=== PATIENT | female | born 1965 ===

== ENCOUNTER → 2018-01-19 | Outpatient (CLI) | payer OTHER ==
[~2018-01-19] MED LIST: HYDR-3583 PO; HYDR1TAB PO
--- NOTE | 2018-01-19 08:35 | Diagnostic Imaging Report ---
Indication: Routine screening. Comparison is made with prior mammogram from 08/22/2015 and 05/07/2014. 2-D and 3-D bilateral screening mammography was performed with CAD. Scattered fibroglandular densities are identified bilaterally. Intraparenchymal lymph node in the outer right breast appears stable. No new mass or malignant-appearing microcalcifications are seen. The axillae are unremarkable. Impression: BI-RADS category 2 No mammographic features suspicious for malignancy are identified. ACR BI-RADS Category 2: Benign findings. Result letter will be mailed to the patient. Note: At least 10% of breast cancer is not imaged by mammography. Dictated by: Dictated on workstation # [id number]
== END ==
LOC: RAD 07:37
PROVIDERS: ATTEND Family Medicine
DX: Z12.31 Encounter for screening mammogram for malignant neoplasm of breast (principal)
CPT/HCPCS: 77067

== ENCOUNTER 2018-03-02 12:15 | Emergency (ER) | payer OTHER ==
[~2018-03-02] VITALS: Ht 149.9 cm; Wt 85.7 kg
[2018-03-02] MEDS ORDERED: METF500T8 (12:39)
[2018-03-02 12:47] LABS: BASOPHILS % (AUTO) 0 % (0-10); EOSINOPHILS % (AUTO) 0 % (0-10); HEMATOCRIT 36 % (35-52); HEMOGLOBIN 11.3 G/DL (11.5-16.0); LYMPHOCYTES % (AUTO) 18 % (12-44); MEAN CORPUSCULAR HEMOGLOBIN 22 PG (25-34); MEAN CORPUSCULAR HGB CONC 32 G/DL (32-36); MEAN CORPUSCULAR VOLUME 70 FL (80-99); MEAN PLATELET VOLUME 10.6 FL (7.4-10.4); MONOCYTES # (AUTO) 0.3 X 10^3 (0.0-1.0); MONOCYTES % (AUTO) 5 % (0-12); NEUTROPHILS # (AUTO) 4.4 X 10^3 (1.8-7.8); NEUTROPHILS % (AUTO) 78 % (42-75); PLATELET COUNT 280 10^3/uL (130-400); RED BLOOD COUNT 5.04 10^6/uL (4.35-5.85); RED CELL DISTRIBUTION WIDTH 18.7 % (10.0-14.5); WHITE BLOOD COUNT 5.7 10^3/uL (4.3-11.0)
[2018-03-02 13:08] LABS: ALANINE AMINOTRANSFERASE 27 U/L (0-55); ALBUMIN 4.1 GM/DL (3.2-4.5); ALKALINE PHOSPHATASE 166 U/L (40-136); BILIRUBIN,TOTAL 0.5 MG/DL (0.1-1.0); BUN/CREATININE RATIO 18; CALCIUM 8.8 MG/DL (8.5-10.1); CARBON DIOXIDE 23 MMOL/L (21-32); CHLORIDE 103 MMOL/L (98-107); CREATININE SERUM 0.68 MG/DL (0.60-1.30); GFR ESTIMATED > 60; GLUCOSE 163 MG/DL (70-105); POTASSIUM 3.3 MMOL/L (3.6-5.0); SODIUM 135 MMOL/L (135-145); TOTAL PROTEIN 7.8 GM/DL (6.4-8.2)
[2018-03-02 13:14] LABS: BILIRUBIN,URINE NEGATIVE (NEGATIVE); CLARITY,URINE CLEAR; COLOR,URINE YELLOW; GLUCOSE, URINE (UA) NEGATIVE (NEGATIVE); KETONES,URINE 3+ (NEGATIVE); LEUKOCYTE ESTERASE ,URINE NEGATIVE (NEGATIVE); NITRITE,URINE NEGATIVE (NEGATIVE); PH,URINE 5 (5-9); PROTEIN,URINE 2+ (NEGATIVE); UROBILINOGEN,URINE 1 MG/DL (NORMAL)
[2018-03-02 13:25] LABS: BACTERIA,URINE NEGATIVE /HPF
--- NOTE | 2018-03-02 13:27 | ED Abdominal Pain ---
General Chief Complaint: Abdominal/GI Problems Stated Complaint: ABD PAIN Nursing Triage Note: Pt accompanied by daughter to triage rm. Pt reports severa abdominal pain with some nausea that began this am. Pt reports pain radiates to the back. Pt denies bowel or bladder issues. Sepsis Screen: No Definite Risk Source of Information: Patient, Family Exam Limitations: No Limitations, Language Barrier History of Present Illness Date Seen by Provider: Mar 02, 2018 Time Seen by Provider: 13:22 Initial Comments The patient is a 52-year-old female. Her [place] is limited. However her daughter speaks excellent [place] and serves as the sports broadcaster. They report that she acutely began having upper abdominal pain this morning mostly centered in the epigastrium and radiating to the back. She has had nausea but no vomiting. She has a past history of laparoscopic cholecystectomy several years ago. There has been no evidence of hematemesis hematochezia or melena. She had a normal bowel movement this morning. There has been no gallbladder pain since removal. Timing/Duration: 4-6 Hours Severity/Quality: Mild, Moderate Location: Epigastric Radiation: Back Allergies and Home Medications Allergies Coded Allergies: No Known Drug Allergies (Unverified , 02/17/11) Patient Home Medication List Home Medication List Reviewed: Yes Review of Systems Review of Systems Constitutional: see HPI EENTM: No Symptoms Reported Respiratory: No Symptoms Reported Cardiovascular: No Symptoms Reported Gastrointestinal: See HPI Genitourinary: No Symptoms Reported Musculoskeletal: no symptoms reported Skin: no symptoms reported Psychiatric/Neurological: No Symptoms Reported Endocrine: No Symptoms Reported Hematologic/Lymphatic: No Symptoms Reported Past Fsflxwd-Zeanby-Lrtnse Hx Patient Social History Alcohol Use: Denies Use Recreational Drug Use: No Smoking Status: Never a Smoker 2nd Hand Smoke Exposure: Yes Recent Foreign Travel: No Contact w/Someone Who Travel: No Recent Infectious Disease Expo: No Recent Hopitalizations: No Past Medical History Surgeries: Yes (r/l tk, neck) Section, Gallbladder Respiratory: No Cardiac: No Neurological: No Gastrointestinal: No Musculoskeletal: Yes Endocrine: Yes Diabetes, Non-Insulin dep HEENT: No Cancer: No Psychosocial: No Blood Disorders: No Physical Exam Vital Signs Vital Signs - First Documented 03/02/18 12:20 Temp 97.8 Pulse 84 Resp 22 B/P (MAP) 131/90 (104) Pulse Ox 93 O2 Delivery Room Air Capillary Refill : Less Than 3 Seconds Height/Weight/BMI Height: 4'11.00" Weight: 189lbs. oz. 85.520586dj; BMI Method:Stated General Appearance: mild distress HEENT: normal ENT inspection Neck: full range of motion Respiratory: chest non-tender, lungs clear, normal breath sounds, no respiratory distress, no accessory muscle use Cardiovascular: systolic murmur (grade 1-2 heard best along the left sternal border and at right and left second intercostal space.) Gastrointestinal: abnormal bowel sounds Extremities: normal range of motion, non-tender, normal inspection, no pedal edema Back: normal inspection Neurologic/Psychiatric: toy consultant II-XII nml as tested, no motor/sensory deficits, alert, normal mood/affect, oriented x 3 Skin: normal color Lymphatic: no adenopathy Progress/Results/Core Measures Results/Orders Lab Results Laboratory Tests Test 03/02/18 12:35 03/02/18 13:02 Range/Units White Blood Count 5.7 4.3-11.0 10^3/uL Red Blood Count 5.04 4.35-5.85 10^6/uL Hemoglobin 11.3 L 11.5-16.0 G/DL Hematocrit 36 35-52 % Mean Corpuscular Volume 70 L 80-99 FL Mean Corpuscular Hemoglobin 22 L 25-34 PG Mean Corpuscular Hemoglobin Concent 32 32-36 G/DL Red Cell Distribution Width 18.7 H 10.0-14.5 % Platelet Count 280 130-400 10^3/uL Mean Platelet Volume 10.6 H 7.4-10.4 FL Neutrophils (%) (Auto) 78 H 42-75 % Lymphocytes (%) (Auto) 18 12-44 % Monocytes (%) (Auto) 5 0-12 % Eosinophils (%) (Auto) 0 0-10 % Basophils (%) (Auto) 0 0-10 % Neutrophils # (Auto) 4.4 1.8-7.8 X 10^3 Lymphocytes # (Auto) 1.0 1.0-4.0 X 10^3 Monocytes # (Auto) 0.3 0.0-1.0 X 10^3 Eosinophils # (Auto) 0.0 0.0-0.3 10^3/uL Basophils # (Auto) 0.0 0.0-0.1 10^3/uL Sodium Level 135 135-145 MMOL/L Potassium Level 3.3 L 3.6-5.0 MMOL/L Chloride Level 103 98-107 MMOL/L Carbon Dioxide Level 23 21-32 MMOL/L Anion Gap 9 5-14 MMOL/L Blood Urea Nitrogen 12 7-18 MG/DL Creatinine 0.68 0.60-1.30 MG/DL Estimat Glomerular Filtration Rate > 60 BUN/Creatinine Ratio 18 Glucose Level 163 H 70-105 MG/DL Calcium Level 8.8 8.5-10.1 MG/DL Corrected Calcium 8.7 8.5-10.1 MG/DL Total Bilirubin 0.5 0.1-1.0 MG/DL Aspartate Amino Transf (AST/SGOT) 55 H 5-34 U/L Alanine Aminotransferase (ALT/SGPT) 27 0-55 U/L Alkaline Phosphatase 166 H 40-136 U/L Total Protein 7.8 6.4-8.2 GM/DL Albumin 4.1 3.2-4.5 GM/DL Lipase 55 8-78 U/L Urine Color YELLOW Urine Clarity CLEAR Urine pH 5 5-[address] 1.020 1.016-1.022 Urine Protein 2+ H NEGATIVE Urine Glucose (UA) NEGATIVE NEGATIVE Urine Ketones 3+ H NEGATIVE Urine Nitrite NEGATIVE NEGATIVE Urine Bilirubin NEGATIVE NEGATIVE Urine Urobilinogen 1 NORMAL MG/DL Urine Leukocyte Esterase NEGATIVE NEGATIVE Urine RBC (Auto) NEGATIVE NEGATIVE Urine RBC NONE /HPF Urine WBC NONE /HPF Urine Squamous Epithelial Cells 2-5 /HPF Urine Crystals NONE /LPF Urine Bacteria NEGATIVE /HPF Urine Casts NONE /LPF Urine Mucus SMALL H /LPF Urine Culture Indicated NO My Orders Orders - MAURO MCGRATH MD Cbc With Automated Diff (03/02/18 12:25) Comprehensive Metabolic Panel (03/02/18 12:25) Ua Culture If Indicated (03/02/18 12:25) Lipase (03/02/18 12:47) Fentanyl Injection (Sublimaze Injection (03/02/18 13:30) Ct Abdomen/Pelvis W (03/02/18 13:31) Iohexol Injection (Omnipaque 350 Mg/Ml 1 (03/02/18 14:15) Contrast Received (Contrast Received) (03/02/18 14:15) Ns (Ivpb) (Sodium Chloride 0.9% Ivpb Bag (03/02/18 14:15) Medications Given in ED Current Medications Medications Dose Ordered Sig/Cici Route Start Time Stop Time Status Last Admin Dose Admin Fentanyl Citrate 50 mcg ONCE ONCE IVP 03/02/18 13:30 03/02/18 13:31 DC 03/02/18 13:35 50 MCG Iohexol 100 ml ONCE ONCE IV 03/02/18 14:15 03/02/18 14:16 DC 03/02/18 14:13 100 ML Sodium Chloride 100 ml ONCE ONCE IV 03/02/18 14:15 03/02/18 14:16 DC 03/02/18 14:13 80 ML Vital Signs/I&O 03/02/18 03/02/18 12:20 13:43 Temp 97.8 98.2 Pulse 84 87 Resp 22 16 B/P (MAP) 131/90 (104) 127/70 (89) Pulse Ox 93 98 O2 Delivery Room Air Blood Pressure Mean: 104 Departure Communication (Admissions) CT scan showed no evidence of acute pathology. These findings were relayed to the patient's daughter and through her to the patient. Impression Primary Impression: abdominal pain Disposition: 01 HOME, SELF-CARE Condition: Stable/Unchanged Departure-Patient Inst. Decision time for Depature: 15:04 Referrals: [facility] (PCP/Family) Primary Care Physician Patient Instructions: Acute Abdomen (Belly Pain), Adult (DC) Add. Discharge Instructions: All discharge instructions reviewed with patient and/or family. Voiced understanding. Take small feedings and bland food for the next 24 hours. Get Prilosec OTC at the pharmacy and take 1 today and daily. If further problems see your provider MAURO MCGRATH MD Mar 02, 2018 13:27
[2018-03-02] MEDS ORDERED: fentaNYL INJECTION 100 MCG/2 ML AMP IVP ONE (13:30)
[2018-03-02 13:43] VITALS: BP 127/70
[2018-03-02] MEDS ORDERED: NS 100 ML (IVPB) BAG IV ONE (14:15)
[2018-03-02] MEDS ORDERED: IOHEXOL 350 MG/ML 100 ML (OMNIPAQUE 350) VIAL IV ONE (14:15)
[2018-03-02] MEDS ORDERED: RECEIVED CONTRAST (Hold Metformin) IV SCH (14:15)
--- NOTE | 2018-03-02 14:34 | Diagnostic Imaging Report ---
PROCEDURE: CT abdomen and pelvis with contrast. TECHNIQUE: Multiple contiguous axial images were obtained through the abdomen and pelvis after administration of intravenous contrast. INDICATION: Epigastric pain. FINDINGS: Lung bases are clear. Liver appears normal. Gallbladder is surgically absent. Pancreas is normal. Spleen is not enlarged. Kidneys and adrenals appear normal. Uterus is mildly enlarged and deviated towards the right. Adnexa are unremarkable. Urinary bladder appears normal. There is diverticulosis of the colon with moderate fecal retention. There is no evidence of diverticulitis. Small bowel is unremarkable. Aorta and IVC are unremarkable. There is no intraperitoneal free air or free fluid. IMPRESSION: No acute abnormality is seen in the abdomen or pelvis. Dictated by: Dictated on workstation # [id number]
[2018-03-02 15:15] VITALS: BP 118/61
== END 2018-03-02 15:15 | disposition home or self-care (01) ==
LOC: EDUNIT# 12:15 → ER 12:16
DX: R10.33 Periumbilical pain (principal); E11.9 Type 2 diabetes mellitus without complications; Z98.84 Bariatric surgery status; Z77.22 Contact with and (suspected) exposure to environmental tobacco smoke (acute) (chronic); Z98.890 Other specified postprocedural states
CPT/HCPCS: 36415; 74177; 80053; 81000; 83690; 85025

== ENCOUNTER → 2018-08-02 | Outpatient (CLI) | payer OTHER ==
[~2018-08-02] MED LIST changes: +METF500T8
--- NOTE | 2018-08-02 17:22 | Diagnostic Imaging Report ---
EXAMINATION: Magnetic resonance imaging of the left knee without intravenous contrast DATE: August 02, 2018. COMPARISON: None. INDICATION: 53-year-old female, left knee pain and swelling. TECHNIQUE: Multiplanar, multisequence non contrast enhanced MR imaging was accomplished. FINDINGS: There are motion limitations of the exam despite multiple repeat sequences. MENISCI: There is an extensive complex tear involving the entire medial meniscus. There is volume loss involving the anterior horn junction and body of the medial meniscus. There is 3-4 mm medial meniscal extrusion. The lateral meniscus is grossly intact. LIGAMENTS AND TENDONS: The anterior and posterior cruciate ligaments are intact. There is mass effect on the superficial component of the medial collateral ligament complex relating to the extruded medial meniscus and medial compartment osteophytes. There is no tear of the medial collateral ligament complex. The iliotibial band, mid third lateral capsular ligament, fibular collateral ligament, biceps femoris tendon and conjoined tendon are intact. The quadriceps tendon and patella ligament are intact. JOINT: There is minimal superficial irregularity of the patellofemoral compartment cartilage. There are broad areas of full-thickness medial compartment cartilage loss. The lateral compartment cartilage is grossly intact. There is a trace knee joint effusion without identified intra-articular body or prominent synovitis. BONE: There is degenerative related marrow edema in the medial femoral condyle and medial tibial plateau. There is no acute fracture, bone contusion or evidence of osteonecrosis. BURSAE AND SOFT TISSUES: There is a small Ferrell's cyst with body in the Ferrell's cyst measuring 10 x 9 x 14 mm in size. There is edema-like signal near the myotendinous junction of the lateral head of gastrocnemius likely relating to a low-grade myotendinous strain injury. There is mild nonspecific prepatellar subcutaneous edema. IMPRESSION: 1. Extensive complex tear involving the entire medial meniscus with volume loss involving the anterior horn/body junction and body of the medial meniscus. 3-4 mm medial meniscal extrusion. 2. Grossly intact lateral meniscus. 3. Intact anterior and posterior cruciate ligaments. Additional ligaments and tendons are intact. 4. Severe medial and minimal patellofemoral compartment osteoarthritis. Trace knee joint effusion. 5. Small Ferrell's cyst with body in the Ferrell's cyst measuring 10 x 9 x 14 mm in size. 6. No acute fracture, bone contusion or evidence of osteonecrosis. 7. Low-grade myotendinous sprain injury of the lateral head of gastrocnemius. Dictated on workstation # [id number]
--- NOTE | 2018-08-02 17:24 | Diagnostic Imaging Report ---
EXAMINATION: Magnetic resonance imaging of the right knee without intravenous contrast DATE: August 02, 2018. COMPARISON: None. INDICATION: 53-year-old female, right knee pain and swelling. TECHNIQUE: Multiplanar, multisequence non contrast enhanced MR imaging was accomplished. FINDINGS: MENISCI: There is an oblique tear involving the anterior horn, body and posterior horn of the medial meniscus. There is a 4 mm medial meniscal extrusion. There is mild volume loss of the body of the medial meniscus. There is signal in the anterior horn of the lateral meniscus which is best classified as low to intermediate probability for meniscal tear. The body and posterior horn of the lateral meniscus appear intact. LIGAMENTS AND TENDONS: The anterior and posterior cruciate ligaments are intact. There is mass effect on the superficial component of the medial collateral ligament relating to the medial meniscal extrusion and medial compartment osteophytes. There is no identified tear of the medial collateral ligament complex. The iliotibial band, mid third lateral capsular ligament, fibular collateral ligament, biceps femoris tendon and conjoined tendon are intact. The quadriceps tendon and patella ligament are intact. JOINT: There is approximately 25-50% generalized medial compartment cartilage loss. There is mild irregularity of the surface of the lateral compartment cartilage. The patellofemoral compartment cartilage is grossly intact. There is no knee joint effusion, prominent synovitis or identified intra-articular body. BONE: There is low level degenerative related marrow edema adjacent to the medial compartment and in the lateral tibial plateau. There is no acute fracture, bone contusion or evidence of osteonecrosis. BURSAE AND SOFT TISSUES: There is a small slitlike Ferrell's cyst. Additional soft tissue evaluation is unremarkable. IMPRESSION: 1. Oblique tear involving the anterior horn, body and posterior horn of the medial meniscus with 4 mm medial meniscal extrusion. Mild volume loss of the body of the medial meniscus. 2. Signal in the anterior horn of the lateral meniscus which is best classified as a low to intermediate probability for meniscal tear. The additional components of the lateral meniscus are intact. 3. Intact anterior and posterior cruciate ligaments. Additional ligaments and tendons are intact. 4. Eiij-ep-oloaasrq medial and mild lateral compartment osteoarthritis. No knee joint effusion, prominent synovitis or identified intra-articular body. 5. Small slitlike Ferrell's cyst. 6. No acute fracture, bone contusion or evidence of osteonecrosis. Dictated on workstation # [id number]
== END ==
LOC: RAD 12:16
PROVIDERS: ATTEND Orthopaedic Surgery
DX: S83.241A Other tear of medial meniscus, current injury, right knee, initial encounter (principal); S83.8X2A Sprain of other specified parts of left knee, initial encounter; S83.232A Complex tear of medial meniscus, current injury, left knee, initial encounter; M71.22 Synovial cyst of popliteal space [Baker], left knee; M17.11 Unilateral primary osteoarthritis, right knee; M71.21 Synovial cyst of popliteal space [Baker], right knee
CPT/HCPCS: 73721

== ENCOUNTER → 2019-01-21 | Outpatient (CLI) | payer OTHER ==
--- NOTE | 2019-01-21 10:53 | Diagnostic Imaging Report ---
INDICATION: Screening The current study was also evaluated with a Computer Aided Detection (CAD) system. 3-D Tomographic imaging was also performed. INDICATION: Screening. The current study was also evaluated with a Computer Aided Detection (CAD) system. 3-D Tomographic imaging was also performed. FINDINGS: There are scattered fibroglandular densities bilaterally. There are a few benign type calcifications. There is no dominant mass, spiculated lesion or suspicious calcification identified. Skin nipples and axillae are unremarkable. IMPRESSION: Category 2 benign. ACR BI-RADS Category 2: Benign findings. Result letter will be mailed to the patient. Note: At least 10% of breast cancer is not imaged by mammography. Dictated by: Dictated on workstation # [id number]
== END ==
LOC: RAD 08:59
PROVIDERS: ATTEND Nurse Practitioner Community Health
DX: Z12.31 Encounter for screening mammogram for malignant neoplasm of breast (principal)
CPT/HCPCS: 77067

== ENCOUNTER 2022-06-15 13:00 | Outpatient (CLI) | payer BC ==
[~2022-06-15] VITALS: Ht 142.2 cm; Wt 93.6 kg
[~2022-06-15 13:00] MED LIST changes: -ATOR10TA66 PO; -METF-478 PO
[2022-06-15 13:25] LABS: BILIRUBIN,URINE NEGATIVE (NEGATIVE); CLARITY,URINE CLEAR; COLOR,URINE YELLOW; GLUCOSE, URINE (UA) NEGATIVE (NEGATIVE); KETONES,URINE TRACE (NEGATIVE); LEUKOCYTE ESTERASE ,URINE NEGATIVE (NEGATIVE); NITRITE,URINE NEGATIVE (NEGATIVE); PH,URINE 6.5 (5-9); PROTEIN,URINE TRACE (NEGATIVE)
[2022-06-15] MEDS ORDERED: ATOR10TA66 PO (13:25)
[2022-06-15] MEDS ORDERED: METF-478 PO (13:25)
[2022-06-15 13:33] LABS: BACTERIA,URINE TRACE /HPF; RBC,URINE 0-2 /HPF; WBC,URINE 0-2 /HPF
[2022-06-15 13:57] VITALS: BP 136/74
[2022-06-15 14:54] LABS: BASOPHILS % (AUTO) 1 % (0-10); EOSINOPHILS # (AUTO) 0.1 10^3/uL (0.0-0.3); EOSINOPHILS % (AUTO) 2 % (0-10); HEMATOCRIT 41 % (35-52); HEMOGLOBIN 13.3 g/dL (11.5-16.0); LYMPHOCYTES # (AUTO) 1.6 10^3/uL (1.0-4.0); LYMPHOCYTES % (AUTO) 27 % (12-44); MEAN CORPUSCULAR HEMOGLOBIN 28 pg (25-34); MEAN CORPUSCULAR HGB CONC 33 g/dL (32-36); MEAN CORPUSCULAR VOLUME 85 fL (80-99); MEAN PLATELET VOLUME 10.6 fL (9.0-12.2); MONOCYTES # (AUTO) 0.4 10^3/uL (0.0-1.0); MONOCYTES % (AUTO) 7 % (0-12); NEUTROPHILS # (AUTO) 3.8 10^3/uL (1.8-7.8); NEUTROPHILS % (AUTO) 64 % (42-75); PLATELET COUNT 304 10^3/uL (130-400)
[2022-06-15 15:03] LABS: PROTHROMBIN TIME PATIENT 13.6 SEC (12.2-14.7)
[2022-06-15 15:11] LABS: BILIRUBIN,TOTAL 0.3 MG/DL (0.1-1.0); CALCIUM 9.7 MG/DL (8.5-10.1); CREATININE SERUM 0.57 MG/DL (0.60-1.30); POTASSIUM 3.3 MMOL/L (3.6-5.0); TOTAL PROTEIN 7.4 GM/DL (6.4-8.2)
[2022-06-15 15:13] LABS: ERYTHROCYTE SEDIMENTATION RATE 23 MM/HR (0-30)
--- NOTE | 2022-06-15 15:41 | Physical Therapy Pre-Op Eval ---
PT Pre-Surgical Assessment Type of Surgery Type of Surgery: Prior Level of Function Current Living Status: Other Family Locomotion (Upon Admit): Independent PLOF DME: None Subjective Home: Multilevel Current Living Status: Other Family Entry Into Home: Stairs Without Railing Steps Into Home: 5 Steps Inside Home: 14 Steps Accessories: No Railing Treatment Rendered Treatment: Patient instructed in assistive device, supported ambulation. Patient instructed in and given written program of ROM and strengthening exercises to be preformed post-op. Patient instructed in movement precautions where applicable. Patient demonstrates understandings of post-operative therapy protocol including gait pattern and exercise program. Pre-operative instruction completed; await physical therapy orders after surgery. Patient only speaks [place]. Nurse was with patient and the mental health consultant services. HEP and patient information received from daughter who speaks [place]. Treatment Goal Met: Yes Charges/GCodes Time In: 1331 Time Out: 1338 Total Billed Treatment Time: 7 Total Billed Treatment Visit, Education (no Charge) ROSAMARIA CADET PT Jun 15, 2022 15:41
--- NOTE | 2022-06-15 16:18 | Diagnostic Imaging Report ---
INDICATION: Preoperative evaluation prior to knee surgery. EXAMINATION: Two view chest, 06/15/2022. FINDINGS: The cardiomediastinal silhouette is unremarkable. The pulmonary vasculature is within normal limits. The lungs and pleural spaces are clear. IMPRESSION: No evidence of an acute cardiopulmonary process. Dictated by: Dictated on workstation # [id number]
== END 2022-06-15 17:06 ==
LOC: PREOP 13:00
PROVIDERS: ATTEND Orthopaedic Surgery
DX: Z01.812 Encounter for preprocedural laboratory examination (principal); Z01.810 Encounter for preprocedural cardiovascular examination
CPT/HCPCS: 36415; 71046; 80053; 81000; 82308; 85025; 85610; 85652; 86850; 86900; 86901; 87081; 93005

== ENCOUNTER → 2022-06-15 | Outpatient (CLI) | payer BC ==
[~2022-06-15] MED LIST changes: +ATOR10TA66 PO; +METF-478 PO; +METF-865; -METF500T8
== END ==
LOC: RAD 14:49
PROVIDERS: ATTEND Orthopaedic Surgery
DX: Z01.818 Encounter for other preprocedural examination (principal); M17.11 Unilateral primary osteoarthritis, right knee

== ENCOUNTER 2022-06-22 07:53 | Inpatient (IN) | payer BC, OTHER ==
--- NOTE | 2022-06-15 08:24 | HISTORY AND PHYSICAL ---
ADMISSION HISTORY AND PHYSICAL This will be for inpatient admission on 06/22/2022 for left total knee arthroplasty. The patient will require regular inpatient admission due to comorbidities, need for physical therapy and pain management. HISTORY OF PRESENT ILLNESS: The patient is a 57-year-old female with longstanding bilateral knee pain, left worse than right. She has been treated with arthroscopy as well as injections without relief. Radiographs reveal complete loss of medial and patellofemoral joint spaces. Due to functional impairment and failure to improve with conservative measures, the patient elected to proceed with surgical intervention. REVIEW OF SYSTEMS: No chest pain, no shortness of breath. No dysuria. PAST MEDICAL HISTORY: Diabetes. PAST SURGERIES: Bilateral knee arthroscopy, cholecystectomy, and cervical spine. FAMILY HISTORY: Unknown. PRIMARY CARE PROVIDER: [facility]. MEDICATIONS: Metformin and meloxicam. ALLERGIES: NO KNOWN DRUG ALLERGIES. SOCIAL HISTORY: The patient denies tobacco use. She drinks alcohol occasionally. PHYSICAL EXAMINATION: GENERAL: The patient is well-developed, well-nourished, in no acute distress. HEENT: Normocephalic, atraumatic. Pupils are equal, round and reactive to light. Oropharynx is clear. NECK: Supple. No lymphadenopathy. LUNGS: Clear to auscultation bilaterally. HEART: Regular rate and rhythm. ABDOMEN: Soft, nontender, nondistended. EXTREMITIES: Her left knee demonstrates moderate effusion. She has pain with patellar loading with crepitus noted. She is tender along her medial femoral condyle and has pain medially with Nadia's. Her range of motion is 0/2/120. The patient ambulates with an antalgic gait. IMPRESSION: Left knee osteoarthritis, unresponsive to conservative measures. PLAN: Left total knee arthroplasty. The risks, benefits, options, ramifications and recovery have been discussed at length with the patient. She understands and wishes to proceed. Job ID: [id number] DocumentID: [id number] Dictated Date: 06/02/2022 08:10:51 Info Analyst Date: 06/02/2022 09:46:00 Dictated By: GERRI NAVARRETE MD
[~2022-06-22] VITALS: Ht 152.4 cm; Wt 93.6 kg
[2022-06-22] VITALS (14 sets, daily range): BP systolic 117–153; BP diastolic 60–85
[~2022-06-22 07:53] MED LIST changes: +ATOR10TA66 PO; +METF-478 PO; +NALOXONE 0.4 MG/ML 1 ML (NARCAN) VIAL IV PRN; +ONDANSETRON 4 MG/2 ML (SDV) Z0FRAN IVP PRN; +diphenhydrAMINE 50 MG/ML INJ (BENADRYL) IVP PRN; +morphine PCA 100 MG/100 ML BAG IV PRN
--- OUTSIDE RECORDS SUMMARY | 2022-06-22 07:59 | XMS REPORT ---
Author Author [facility] Address Unknown Phone Unavailable Care Team Providers Care Labor Custodian Name Role Phone NADINEMARIA ANTONIA Unavailable PROBLEMS Type Condition ICD9-CM Code [id number] Code Onset Dates Condition S tatus W/U Status Risk SNOMED Code Notes Problem Obesity (BMI 30-39.9) E66.9 confirmed 370514758 Problem Type 2 diabetes mellitus wit hout complication, without long-term current use of insulin E11.9 confirmed 179139355 Problem Hot flashes due to menopause N95.1 confirme d [id number] Problem Urge and stress incontinence N39.46 confirme d [id number] Problem Iron deficiency anemia secondary to inadequate d ietary iron intake D50.8 confirmed 622787607 Problem Prediabetes R73.03 confirmed [id number] 2 ALLERGIES No Known Allergies ENCOUNTERS from 1965 to 2022-06-17 Encounter Location Date Provider Diagnosis [facility] [address] [facility] [id number] [place] [address] Jun, MARIA ANTONIA MCCOY Encounter for immuni zation Z23 IMMUNIZATIONS Vaccine Route Administration Date Status 1st Dose COVID-19, mRNA, MODERNA, 0.5 mL 2019 IM Intramuscular M 2020 Administered FLULAVAL (3 & UP) 2013 Unknown Apr 10, 2014 Pending 1st Booster MODERNA COVID-19, mRNA, 0.25mL IM Intramuscular Apr 09, 2021 Administered PRIVATE PCV20 ([id number]) IM Intramuscular Mar 28, 2022 Admin istered 2nd Dose HRSA MODERNA, COVID-19, 0.5mL IM Intramuscular June Administered SOCIAL HISTORY Sex Assigned At : Social History Observation Description Sex Assigned At Unknown Alcohol Screen (Audit-C) Question Answer Notes Did you have a drink containing alcohol in the past year? Ye s Points 1 Interpretation Negative How many drinks did you have on a typica l day when you were drinking in the past year? 1 or 2 (0 points) How often did you have a drink containing alcohol in t he past year? Monthly or less (1 point) PHQ2 Question Answer Notes In the last 2 weeks, how often have you had little interest or pleasure in doing things? Not at all In the last 2 weeks, how often have you been feeling down, depressed, or hopeless? Not at all Total PHQ2 Score 0 REASON FOR REFERRAL No Information VITAL SIGNS No information MEDICATIONS Medication SIG (Take, Route, Frequency, Duration) Notes Start Da te End Date Status Glucocard Expression Monitor w/Device as directed Dec, Active Meclizine HCl 25 MG 1 tablet as needed Orally every 12 hrs for 7 days Oct, Active Pantoprazole Sodium 20 MG TAKE ONE (1) TABLET BY MOUTH ONCE DAILY for 30 Active metFORMIN HCl ER 500 MG TAKE TWO (2) TABLETS BY MOUT H WITH BREAKFAST AND TWO (2) TABLETS WITH SUPPER for 90 Activ e Albuterol Sulfate HFA 108 (90 Base) MCG/ACT 1 puff as needed Inhalation every 4 hrs for 14 days Feb, Active Atorvastatin Calcium 10 MG 1 tablet Orally Once a day for 90 day s 17 Mar, 2022 Active Myrbetriq 50 MG 1 tablet Orally Once a day for 30 day(s) 0 6 Dec, 2020 Active Test strips Test Strips 2 times a week glucocard expression Dec, Active PROCEDURES No Information RESULTS No Results REASON FOR VISIT COVID-19 Vaccine Dose 2 MEDICAL (GENERAL) HISTORY Type Description Date Medical History Diabetic Medical History Post cholecystectomy Medical History Arthritis bilat knees Medical History Post-menopausal bleeding Surgical History Post Cholecystectomy 04/07/2011 Surgical History Otolaryngologic surgery benign tuor radha angel from neck Surgical History Surgical History Bilat Knee Hospitalization History surgeries Goals Section No Information Health Concerns No Information MEDICAL EQUIPMENT No Information MENTAL STATUS No Information FUNCTIONAL STATUS No Information ASSESSMENTS Encounter Date Diagnosis Assessment Notes Treatment Notes Treatm ent Clinical Notes Jun, Encounter for immunization (ICD-10 - Z23 ) PLAN OF TREATMENT Medication Medication Name Sig Start Date Stop Date metFORMIN HCl ER 500 MG TAKE TWO (2) TABLETS BY MOUT H WITH BREAKFAST AND TWO (2) TABLETS WITH SUPPER for 90 Insurance Providers Payer Name Payer Address Payer Phone Insured Name Patient Relati onship to Insured Coverage Start Date Coverage End Date Subscriber Number Group Nu mber [employer] [place] [address] [facility] [phone] Melissa Mccain Self - patient is the insured [id number]
--- OUTSIDE RECORDS SUMMARY | 2022-06-22 08:00 | XMS REPORT ---
Author Author [facility] Address Unknown Phone Unavailable Care Team Providers Care Patient Services Specialist Name Role Phone ANGEL BURNS Unavailable PROBLEMS Type Condition ICD9-CM Code [id number] Code Onset Dates Condition S tatus W/U Status Risk SNOMED Code Notes Problem Obesity (BMI 30-39.9) E66.9 confirmed 307044985 Problem Type 2 diabetes mellitus wit hout complication, without long-term current use of insulin E11.9 confirmed 081202384 Problem Hot flashes due to menopause N95.1 confirme d 849460367 Problem Urge and stress incontinence N39.46 confirme d 60054927 Problem Iron deficiency anemia secondary to inadequate d ietary iron intake D50.8 confirmed 266335651 Problem Prediabetes R73.03 confirmed 91865266 2 ALLERGIES No Known Allergies ENCOUNTERS from 1965 to 2022-06-08 Encounter Location Date Provider Diagnosis [facility] [place] [address] [facility] [id number] [address] [address] Jun, ANGEL BURNS Prediabetes R73.03 ; Obesity (BMI 30-39.9) E66.9 ; Urge and stress incontinence N39.46 and Pain of left heel M79.672 IMMUNIZATIONS Vaccine Route Administration Date Status FLULAVAL (3 & UP) 2013 Unknown Apr 10, 2014 Pending 1st Dose COVID-19, mRNA, MODERNA, 0.5 mL 2020 IM Intramuscular 2020 Administered 2nd Dose HRSA MODERNA, COVID-19, 0.5mL IM Intramuscular June Administered 1st Booster MODERNA COVID-19, mRNA, 0.25mL IM Intramuscular Apr 09, 2021 Administered PRIVATE PCV20 ([id number]) IM Intramuscular Mar 28, 2022 Admin istered SOCIAL HISTORY Sex Assigned At : Social [...] REASON FOR REFERRAL No Information VITAL SIGNS Height 60 in Jun, Weight 198.6 lbs Jun, Weight-kg 90.08 kg Jun, Temperature 97.5 degrees Fahrenheit Jun, Heart Rate 100 bpm Jun, Respiratory Rate 18 bpm Jun, Oximetry 96 % Jun, BMI 38.78 kg/m2 Jun, Blood pressure systolic 130 mmHg Jun, Blood pressure diastolic 60 mmHg Jun, MEDICATIONS Medication SIG (Take, Route, Frequency, Duration) [...] Once a day for 90 day s Mar, Active Myrbetriq 50 MG 1 tablet Orally Once a day for 30 day(s) 0 6 Dec, 2020 Active Test strips Test Strips 2 times a week glucocard expression Dec, Active PROCEDURES No Information RESULTS No Results REASON FOR VISIT ipt PT states that she is here for a diabetic check. PT states that the last 2 w eeks she has had a lot of pain in her left heel. PT states that she ran out of Viroblock and it helped but states that it was too expensive is still having bladder leakage. Dorothea Wyatt MA, A1C prediabetes MEDICAL (GENERAL) HISTORY Type Description Date Medical [...] Treatment Notes Treatm ent Clinical Notes Jun, Prediabetes (ICD-10 - R73.03) Co ntinue Metformin Jun, Obesity (BMI 30-39.9) (ICD-10 - E66.9) Jun, Urge and stress incontinence (ICD-10 - N39.46) Trial of Oxybutynin Jun, Pain of left heel (ICD-10 - M79.672) We discussed and she will try OTC heel pads in her shoes. Jun, Other Continue to work on supportive and preventative measures for diet, exercise, and disease prevention. PLAN OF TREATMENT Medication Medication Name Sig Start Date Stop Date metFORMIN HCl ER 500 MG TAKE TWO (2) TABLETS BY MOUT H WITH BREAKFAST AND TWO (2) TABLETS WITH SUPPER for 90 Treatment Notes Assessment Notes Clinical Notes Prediabetes Continue Metformin Urge and stress incontinence Trial of Oxybutynin Pain of left heel We discussed and she will tr y OTC heel pads in her shoes. Next Appt Details 6 Months Reason:A1C/Labs Follow Up:6 VyctzmV5D/Labs Insurance Providers Payer Name Payer Address Payer Phone Insured Name Patient Relati onship to Insured Coverage Start Date Coverage End Date Subscriber Number Group Khadijah antonio [employer] OF [place] [address] [facility] [address] Melissa Mccain Self - patient is the insured [id number]
--- OUTSIDE RECORDS SUMMARY | 2022-06-22 08:00 | XMS REPORT ---
Author Author [facility] Address Unknown Phone Unavailable Care Team Providers Care Property Disposal Manager Name Role Phone NADINEMARIA ANTONIA Unavailable PROBLEMS Type Condition ICD9-CM Code [id number] Code Onset Dates Condition S tatus W/U Status Risk SNOMED Code Notes Problem Obesity (BMI 30-39.9) E66.9 confirmed 361999081 Problem Type 2 diabetes mellitus wit hout complication, without long-term current use of insulin E11.9 confirmed 638912904 Problem Hot flashes due to menopause N95.1 confirme d 465149245 Problem Urge and stress incontinence N39.46 confirme d 91809231 Problem Iron deficiency anemia secondary to inadequate d ietary iron intake D50.8 confirmed 857004737 Problem Prediabetes R73.03 confirmed 36679024 2 ALLERGIES No Known Allergies ENCOUNTERS from 1965 to 2022-05-08 Encounter Location Date Provider Diagnosis [facility] [address] [facility] [id number] [address], [place] [address] May, MARIA ANTONIA MCCOY Encounter for immuni zation Z23 IMMUNIZATIONS Vaccine Route Administration Date Status PRIVATE PCV20 ([id number]) IM Intramuscular Mar 28, 2022 Admin istered 1st Booster MODERNA COVID-19, mRNA, 0.25mL IM Intramuscular Apr 09, 2021 Administered 2nd Dose HRSA MODERNA, COVID-19, 0.5mL IM Intramuscular June Administered 1st Dose COVID-19, mRNA, MODERNA, 0.5 mL 2020 IM Intramuscular 2020 Administered FLULAVAL (3 & UP) 2013 Unknown Apr 10, 2014 Pending SOCIAL HISTORY Sex Assigned At : Social [...] Notes Start Da te End Date Status Pantoprazole Sodium 20 MG TAKE ONE (1) TABLET BY MOUTH ONCE DAILY for 30 Active Glucocard Expression Monitor w/Device as directed Dec, Active Meclizine HCl 25 MG 1 tablet as needed Orally every 12 hrs for 7 days Oct, Active Albuterol Sulfate HFA 108 (90 Base) MCG/ACT 1 puff as needed Inhalation every 4 hrs for 14 days Feb, Active Myrbetriq 50 MG 1 tablet Orally Once a day for 30 day(s) 0 Dec, Active Test strips Test Strips 2 times a week glucocard expression Dec, Active metFORMIN HCl ER 500 mg Take 2 tablets with breakfas t and 2 tablets with supper Orally 2 times a day for 90 days Active Atorvastatin Calcium 10 MG 1 tablet Orally Once a day for 90 day s Mar, Active PROCEDURES No Information RESULTS No Results REASON FOR VISIT COVID-19 Vaccine Dose 1 MEDICAL (GENERAL) HISTORY Type Description Date Medical [...] Notes Treatment Notes Treatm ent Clinical Notes May, Encounter for immunization (ICD-10 - Z23 ) PLAN OF TREATMENT No Information Insurance Providers Payer Name Payer Address Payer Phone Insured Name Patient Relati onship to Insured Coverage Start Date Coverage End Date Subscriber Number Group Nu mber BCBS OF [place] [address] [facility] [phone] Melissa Mccain Self - patient is the insured [id number]
[2022-06-22] MEDS ORDERED: CEFUROXIME INJECTION 1,500 MG in NS (IVPB) 50 ML IV ONE (08:15)
[2022-06-22] MEDS ORDERED: INTRA-ARTICULAR IU ONE ×5 (08:15)
[2022-06-22] MEDS ORDERED: ROPIVACAINE 5MG/ML 30ML VIAL ONE (08:25)
[2022-06-22] MEDS ORDERED: MIDAZOLAM 2 MG/2 ML (VERSED) VIAL ONE (08:25)
[2022-06-22] MEDS ORDERED: LIDOCAINE PF 2% 5 ML (XYLOCAINE) VIAL ONE (08:25)
[2022-06-22] MEDS ORDERED: proPOfol 200 MG/20 ML (DIPRIVAN) VIAL IV ONE (08:40)
[2022-06-22] MEDS ORDERED: fentaNYL INJ 100 MCG/2 ML AMP ONE (08:40)
[2022-06-22] MEDS ORDERED: ONDANSETRON 4 MG/2 ML (SDV) Z0FRAN ONE ×2 (08:40→08:45)
[2022-06-22] MEDS ORDERED: SCOPOLAMINE 1.5 MG (TRANSDERM-SCOP) PATCH ONE (08:44)
[2022-06-22] MEDS ORDERED: FAMOTIDINE 20MG/2ML IV (PEPCID) ONE (08:44)
[2022-06-22] MEDS ORDERED: FAMOTIDINE 20MG/2ML IV (PEPCID) IV ONE (08:45)
[2022-06-22] MEDS ORDERED: ONDANSETRON 4 MG/2 ML (SDV) Z0FRAN IV ONE (08:45)
[2022-06-22] MEDS ORDERED: SCOPOLAMINE 1.5 MG (TRANSDERM-SCOP) PATCH TOP ONE (08:45)
[2022-06-22] MEDS: LACTATED RINGERS 1,000 ML IV PRN ×3 (08:55→11:57)
--- NOTE | 2022-06-22 09:21 | Progress Note-Pre Operative ---
Pre-Operative Progress Note Date of Available H&P: Jul 16, 2022 Date H&P Reviewed: Jun 22, 2022 Time H&P Reviewed: 07:11 Changes from last HP none Pre-Operative Diagnosis: left knee primary osteoarthritis GERRI NAVARRETE MD Jun 22, 2022 09:21
--- NOTE | 2022-06-22 09:23 | Progress Note-Post Operative ---
Post-Operative Progess Note Surgeon (s)/Television Operator (s) Surgeon GERRI NAVARRETE MD Television Operator: Italo Lilly Pre-Operative Diagnosis left knee primary osteoarthritis Post-Operative Diagnosis left knee primary osteoarthritis Procedure & Operative Findings Date of Procedure 06/22/22 Procedure Performed/Findings left total knee arthroplasty Anesthesia Type GETA Estimated Blood Loss Estimated blood loss (mL): minimal Specimens/Packing Specimens Removed none Packing: none GERRI NAVARRETE MD Jun 22, 2022 09:23
--- NOTE | 2022-06-22 09:26 | D/C HH Face to Face Order ---
D/C Face to Face Orders Reconcile Patient Problems Problems Reviewed?: Yes Instructions for Patient Via Ayesha Zidisha, Patient Instructions/FollowUp: three weeks Physician to follow Patient: three weeks Discharge Diet for Home: Regular Diet Patient Data-Allergies,Ht & Wt Patient Allergies: Coded Allergies: No Known Drug Allergies (Unverified , 06/15/22) Height (Feet): 4 Height (Inches): 11.00 Weight (Pounds): 189 Home Health Need/Face to Face Date of Face to Face: Jun 22, 2022 Clinical Findings: Muscle weakness, Pain with ambulation, Unsteady gait I have seen Pt [id number]: Yes Discharged To: Home Diagnosis/Conditions: left total knee arthroplasty Patient is Homebound due to: Muscle weakness, Pain w/ambulation Homebound Status Due to the above stated illness, injury or surgical procedure (medical condition or diagnosis) and associated clinical findings, the patient is homebound because of his/her inability to leave home except with aid of a supportive device and/or person AND leaving the home requires a considerable and taxing effort or is medically contraindicated. Pt req the following assistanc: [facility] Nursing Orders Home Health Services Order: Physical Therapy-Evaluate & Treat DC left knee sondra and apply steri strips 07/06/22 Therapy Orders Therapy Orders: Physical Therapy, PT to assess for OT Therapy Specific Orders: Eval assistive deivces, Gait training, Increase strength/endurance, Provider maintenance therapy, Restore ROM Certify Stmt I certify that this patient is under my care and that I, a nurse practitioner or a physician; a surgical supply assistant working with me, had a face to face encounter that - meets the physician face to face encounter requirements with this patient as dated. GERRI NAVARRETE MD Jun 22, 2022 09:26
[2022-06-22] MEDS ORDERED: TRANEXAMIC ACID 100 MG/ML 10 ML INJECTION ONE (09:45)
[2022-06-22] MEDS ORDERED: SUCCINYLCHOLINE INJ 20 MG/1 ML 10 ML VIAL ONE (09:52)
[2022-06-22] MEDS ORDERED: SEVOFLURANE (ULTANE) 15 ML INHAL SOLN ONE (10:53)
[2022-06-22] MEDS ORDERED: morphine INJ 10 MG/ML 1ML (SYR OR VIAL) ONE (11:05)
[2022-06-22] MEDS ORDERED: ONDANSETRON 4 MG/2 ML (SDV) Z0FRAN IVP PRN (11:15)
[2022-06-22] MEDS ORDERED: morphine INJ 10 MG/ML 1ML (SYR OR VIAL) IVP ONE (11:15)
[2022-06-22] MEDS ORDERED: HYDROmorphone 2 MG/ML VIAL (DILAUDID) IV ONE (11:15)
[2022-06-22] MEDS ORDERED: PROMETHAZINE INJ 25 MG/ML (PHENERGAN) AMP IVP ONE (11:15)
[2022-06-22] MEDS ORDERED: MEPERIDINE (DEMEROL) INJ 50 MG/ML IVP ONE (11:15)
[2022-06-22] MEDS ORDERED: HYDROmorphone 2 MG/ML VIAL (DILAUDID) ONE (11:17)
--- NOTE | 2022-06-22 12:20 | Progress Note ---
Standard Progress Note Progress Notes/Assess & Plan Date Seen by a Provider: Jun 22, 2022 Time Seen by a Provider: 12:19 Progress/Assessment & Plan post op check no complaints radiographs--HW well positioned without fracture LLE--intac DF and PF of toes and ankle intact sensation to light touch throughout 2 plus DP pulse with brisk cap refill s/p LTKA mobilize as able GERRI NAVARRETE MD Jun 22, 2022 12:20
--- NOTE | 2022-06-22 13:03 | Diagnostic Imaging Report ---
INDICATION: Status post left knee replacement. COMPARISON: None. FINDINGS: Two views of the left knee were obtained. Expected postoperative changes are seen from left knee total arthroplasty. Femoral and tibial components appear well-seated. There is no evidence of periprosthetic fracture. There is a small amount of subcutaneous emphysema in the soft tissues over the knee. Skin sondra are seen centrally over the anterior aspect of the knee. No unexpected radiopaque foreign bodies are identified. IMPRESSION: Expected postsurgical changes from left knee total arthroplasty, as described above. No unexpected radiopaque foreign bodies. Dictated by: Dictated on workstation # [id number]
--- NOTE | 2022-06-22 13:37 | Physical Therapy Evaluation ---
PT Evaluation-General Medical Diagnosis Admission Date Jun 22, 2022 at 07:53 Medical Diagnosis: Left TKA Onset Date: Jun 22, 2022 Therapy Diagnosis Therapy Diagnosis: Gait Deficit, strength deficit Height/Weight Height (Feet): 4 Height (Inches): 11.00 Weight (Pounds): 189 Precautions Precautions/Isolations: Fall Prevention Weight Bear Status Right Lower Extremity: Right Full Weight Bearing Left Lower Extremity: Left Weight Bearing/Tolerated Referral Physician: Dionisio Reason for Referral: Evaluation/Treatment Medical History Reviewed History: Yes Social History Home: [facility] Current Living Status: Children Entry Into Home: Stairs With Railing PT Steps Into Home: 3 PT Steps Inside Home: 12 Prior Prior Level of Function SCALE: Activities may be completed with or without assistive devices. 9-Qzghhanpms-oyenipa completes the activity by him/herself with no assistance from a helper. 5-Set-up or Clean-up Assistance-helper sets up or cleans up; patient completes activity. [place] assists only prior to or following the activity. 4-Supervision or Touching Assistance-helper provides verbal cues and/or to uching/steadying and/or contact guard assistance as patient completes activity. Assistance may be provided throughout the activity or intermittently. 3-Partial/Moderate Assistance-helper does LESS THAN HALF the effort. [place] lifts, holds or supports trunk or limbs, but provides less than half the effort. 2-Substantial/Maximal Assistance-helper does MORE THAN HALF the effort. [place] lifts or holds trunk or limbs and provides more than half the effort. 4-Ijebjmkae-zdzdfy does ALL the effort. Patient does none of the effort to complete the activity. Or, the assistance of 2 or more helpers is required for the patient to complete the activity. If activity was not attempted, code reason: 7-Patient Refused. 9-Not Applicable-not attempted and the patient did not perform the activity before the current illness, exacerbation or injury. 10-Not Attempted due to Environmental Limitations-(lack of equipment, weather restraints, etc.). 88-Not Attempted due to Medical Conditions or Safety Concerns. Bed Mobility: 6 Transfers (B,C,W/C): 6 Gait: 6 Stairs: 6 Indoor Mobility (Ambulation): Independent Stairs: Independent Prior Devices Use: None PT Evaluation-Current Subjective Patient lying supine in bed upon PT arrival with daughter in the room, agreeable to treatment. Patient only speaks Tanzanian and daughter translates. This PT sp eaks a small amount of Tanzanian and was able to communicate with patient. Patient rates pain at 10/10 currently. Objective Patient Orientation: Person, Place, Time, Situation Attachments: Oxygen, Polar Pack, IV ROM/Strength ROM Lower Extremities Right LE WFLs all planes. Left knee 20 degrees from neutral in extension and 50 degrees flexion Strength Lower Extremities Right LE 4/5 all planes; Left knee N/A, all other planes 3+/5 Sensory Vision: Functional Hearing: Functional Sensation Right Lower Extremit: Intact Sensation Left Lower Extremity: Intact Transfers Roll Left to Right (QC): 2 Sit to Lying (QC): 3 Lying to Sitting/Side of Bed(Q: 2 Sit to Stand (QC): 2 Patient very dizzy while sitting at EOB, could only tolerate standing Gait Gait Assistive Device: FWW Comments/Gait Description Patient stood at Bedside with max A for ~3 minutes. Balance Sitting Static: Fair Sitting Dynamic: Fair Standing Static: Poor Standing Dynamic: Poor Assessment/Needs Patient tolerated treatment poorly, however had apparently not taken pain medicine and hit her pain pump button upon PT arrival. She also reports dizziness upon sitting up and did not tolerate standing well. Patient performs all bed mobility and transfers with max A. She is very guarded with her left LE movements and does not let the knee bend. Patient tolerates standing at bedside ~3 minutes before requesting to sit down. Patient in bed post treatment with al l needs met, daughter in the room and call light in reach. Rehab Potential: Fair Equipment Needs FWW PT Assisted Goals Assisted Goals PT Buddhist Monk Goals Time Frame: Jul 16, 2022 Roll Left & Right (QC): 6 Sit to Lying (QC): 6 Lying-Sitting on Side/Bed(QC): 6 Sit to Stand (QC): 6 Chair/Qyu-ky-Njupb Xfer(QC): 6 Toilet Transfer (QC): 6 Does the Patient Walk: Yes Walk 10 feet (QC): 4 Walk 50ft with 2 Turns (QC): 4 Walk 150 ft (QC): 4 1 Step (curb) (QC): 3 4 Steps (QC): 3 12 Steps (QC): 3 PT Plan Problem List Problem List: Activity Tolerance, Functional Strength, Safety, Balance, Gait, Transfer, Bed Mobility, ROM Treatment/Plan Treatment Plan: Continue Plan of Care Treatment Plan: Bed Mobility, Education, Functional Activity Ovi, Functional Strength, Group Therapy, Gait, Safety, Therapeutic Exercise, Transfers Treatment Duration: Jul 16, 2022 Frequency: 11 times per week Estimated Hrs Per Day: .25 hour per day Patient and/or Family Agrees t: Yes Safety Risks/Education Patient Education: Transfer Techniques Teaching Recipient: Patient, Family Teaching Methods: Demonstration, Discussion Response to Teaching: Reinforcement Needed Time Time In: 1308 Time Out: 1333 DATE: Jun 22, 2022 Total Billed Treatment Time: 25 Total Billed Treatment Visit, SEBLE CARR JOHN A PT Jun 22, 2022 13:37
--- NOTE | 2022-06-22 14:33 | Consultation ---
SERA BAPTISTE 06/22/22 1433: HPI History of Present Illness: HPI/Chief Complaint Patient is a 57 year old haitian speaking female with history of non-insulin dependent diabetes and hyperlipidemia who is Day S/P Total left knee arthroplasty this morning by Dr. Nichole. We have been consulted to manage her chronic medial conditions. Her daughter is at bedside who is bilingual and translating for the patient and acting as a source of information. The patient tolerated the surgery well and was lying in bed sleeping with 2L O2 via nasal cannula. She reports intermittent Nausea that she associated with pain, and 8/10 left knee pain. She has a PRINCIPAL DEVELOPER with Morphine for pain control at this time. She denies CP, palpitations, SOB, or abd pain. Source: patient, family, picking tech (daughter) Date Seen 06/22/22 Attending Physician Center/[facility] PCP Admitting Physician: Mendez Nichole MD Attending Physician: Mendez Nichole MD Referring Physician Date of Admission Jun 22, 2022 at 07:53 Home Medications & Allergies Home Medications Reviewed patient Home Medication Reconciliation performed by pharmacy medication reconciliations tractor trailer technician and/or nursing. Patients Allergies have been reviewed. Allergies Allergies Coded Allergies No Known Drug Allergies (Unverified06/15/22) Past Wdkmjfz-Dqlkzx-Rmzilc Hx Patient Social History Tobacco Use?: No Smoking Status: Never a Smoker Smokeless Tobacco Frequency: Never a User Use of E-Cig and/or Vaping dev: No Substance use?: No Alcohol Use?: Yes Alcohol Frequency: Rarely Pt feels they are or have been: No Seasonal Allergies Seasonal Allergies: No Current Status Advance Directives: No Communicates: Verbally Primary Language: Thai Preferred Spoken Language: Thai Is interpretation needed?: Yes Implanted or Applied Medical D: None Past Medical History Surgeries: Section, Gallbladder, Orthopedic (C-spine & left knee) Currently Using CPAP: No Currently Using BIPAP: No High Cholesterol Diabetes, Non-Insulin dep Blood Disorders: No Adverse Reaction/Blood Tranf: No Family Medical History Diabetes (Both parents) Review of Systems Constitutional: No chills, No fever EENTM: No hearing loss Respiratory: No cough, No short of breath Cardiovascular: No chest pain, No palpitations Gastrointestinal: No abdominal pain; nausea; No vomiting Musculoskeletal: other (8/10 left knee pain) Skin: no symptoms reported Physical Exam Physical Exam Vital Signs Vital Signs - First Documented 06/22/22 08:00 Temp 36.4 Pulse 87 Resp 18 B/P (MAP) 132/70 (90) Pulse Ox 96 O2 Delivery Room Air Capillary Refill : Less Than 3 Seconds Height, Weight, BMI Height: 4'11.00" Weight: 189lbs. oz. 85.247459yk; 40.30 BMI Method:Stated General Appearance: No Apparent Distress Eyes: Bilateral Eye EOMI HEENT: Moist Mucous Membranes Neck: Non Tender, Supple Respiratory: Chest Non Tender, Lungs Clear, Normal Breath Sounds, No Accessory Muscle Use, No Respiratory Distress Cardiovascular: Regular Rate, Rhythm, No Edema, No Murmur, Normal Peripheral Pulses Gastrointestinal: Normal Bowel Sounds, No Pulsatile Mass, Non Tender, Soft Extremity: Other (LLE nontender, no edema, normal pedal pulse. LLE has bandage in clean, dry, intact bandage present with no peripheral edema visualized and good pedal pulse.) Neurologic/Psychiatric: Alert, Oriented x3, Normal Mood/Affect Skin: Normal Color, Warm/Dry Lymphatic: No Adenopathy Results Results/Procedures Labs Patient resulted labs reviewed. Imaging: Reviewed Imaging Films, Reviewed Imaging Report Imaging NAME: JAYJAY MONTOYA [facility] REC#: [id number] PT STATUS: ADM IN : 1965 PHYSICIAN: KRISS BOLTON ADMIT DATE: 06/22/22 Draft Date of Exam:06/22/22 KNEE, LEFT, 2 VIEWS (AP & LAT) INDICATION: Status post left knee replacement. COMPARISON: None. FINDINGS: Two views of the left knee were obtained. Expected postoperative changes are seen from left knee total arthroplasty. Femoral and tibial components appear well-seated. There is no evidence of periprosthetic fracture. There is a small amount of subcutaneous emphysema in the soft tissues over the knee. Skin sondra are seen centrally over the anterior aspect of the knee. No unexpected radiopaque foreign bodies are identified. IMPRESSION: Expected postsurgical changes from left knee total arthroplasty, as described above. No unexpected radiopaque foreign bodies. Dictated on workstation # [id number] Dict: 06/22/22 1302 Trans: 06/22/22 1303 [id number] Interpreted by: KEITH HYATT MD Electronically signed by: Assessment/Plan Assessment and Plan Assess & Plan/Chief Complaint Day 0 S/P left total knee arthroplasty -Per surg notes, patient tolerated procedure well without complications. Cefuroxime 750mg Q8 x2 bags ordered by surg. -Will control pain with Morphine PRINCIPAL DEVELOPER at this time and back off as able. Will monitor labs and ween from oxygen as patient recovers. Non-insulin dependent Diabetes -Will restart home metformin 500mg PO BID and consider Insulin sliding scale if necessary Hyperlipidemia -Restart Atorvostatin 10mg PO HS DVT Proph: 30mg Q12 SC CHARLINE ORTIZ DO 06/23/22 0611: Past Clldwpi-Btejzc-Qiqqyd Hx Patient Social History Marrital Status: single Employed/Student: employed Review of Systems Constitutional: see HPI Physical Exam Physical Exam General Appearance: Anxious, Mild Distress Respiratory: Lungs Clear, Normal Breath Sounds Cardiovascular: Regular Rate, Rhythm Supervisory-Addendum Brief Verification & Attestation Participated in pt care: history, MDM, physical Personally performed: exam, history, MDM, supervision of care Care discussed with: Medical Student Procedures: n/a Results interpretation: Verified all documentation Verification and Attestation of Medical Student E/M Service A medical student performed and documented this service in my presence. I reviewed and verified all information documented by the medical student and made modifications to such information, when appropriate. I personally performed the physical exam and medical decision making. Charline Ortiz, Jun 23, 2022,06:11 SERA BAPTISTE Jun 22, 2022 14:33 CHARLINE ORTIZ DO Jun 23, 2022 06:11
[2022-06-22] MEDS: SENNA W/DOCUSATE (SENOKOT S) TABLET PO SCH ×2 (15:41→20:15)
[2022-06-22] MEDS: NS IV 1000 ML 1,000 ML IV SCH ×2 (15:43→20:39)
[2022-06-22] MEDS: CEFUROXIME INJECTION 750 MG in NS (IVPB) 50 ML IV SCH ×2 (15:43→23:11)
[2022-06-22] MEDS: metFORMIN XR 500 MG (GLUCOPHAGE XR) TAB PO SCH (17:43)
--- NOTE | 2022-06-22 18:12 | OPERATIVE REPORT ---
DATE OF SERVICE: 06/22/2022 PREOPERATIVE DIAGNOSIS: Left knee primary osteoarthritis. POSTOPERATIVE DIAGNOSIS: Left knee primary osteoarthritis. PROCEDURE: Left total knee arthroplasty. SURGEON: Mendez Nichole MD. PRECISION THREAD GRINDER OPERATOR: BILL Tijerina, who assisted throughout the procedure and closed the incision. ANESTHESIA: General endotracheal by Oscar Rudd CRNA. TOURNIQUET TIME: Approximately 65 minutes at 300 mmHg. ESTIMATED BLOOD LOSS: Minimal. DRAINS: None. COMPLICATIONS: None. POSTOPERATIVE PLAN: Routine protocol. MATERIALS: MicroPort cemented size 3 femur, cemented size 3 tibia with 10 mm insert and cemented size 29 patellar button. STATEMENT OF MEDICAL NECESSITY: The patient is a 57-year-old female with longstanding progressive left knee pain. Radiographs revealed severe medial and patellofemoral arthrosis. She has been treated with injections, arthroscopy and anti-inflammatories and rest without relief. Due to functional impairment and failure to improve with conservative measures, the patient elected to proceed with surgical intervention. DESCRIPTION OF PROCEDURE: After risks and benefits of the procedure were discussed and questions were answered and informed consent signed and placed on the chart, the operative site was confirmed in the preoperative holding area initialed by surgeon. The patient was then transported to the operating room and after adequate levels of general endotracheal anesthetic were obtained, timeout was called, confirming the operative site. The left lower extremity was prepped and draped in the usual sterile fashion with the leg elevated, tourniquet inflated to 300 mmHg. Standard anterior approach was utilized. Hemostasis was obtained with cautery. Medial parapatellar arthrotomy was performed, leaving 1 cm cuff for later reattachment. Portion of fat pad was resected. Subperiosteal release was performed on the proximal and medial tibia, being careful to stay on the bony surface. The ACL was resected. Intramedullary guide was passed into the femoral canal. The distal cutting block was placed and distal cut was made. The femur sized to a size 3. The 3 cutting block was placed parallel to the epicondylar axis and cuts were made from posterior to anterior. Subperiosteal release was then carefully performed on the posterior distal femur, being careful to stay on the bony surface. The tibia was then prepared. The intramedullary guide was passed into the tibial canal. The drop gilson transected the intermalleolar axis and cut was made. The 3 baseplate was positioned and the drop gilson transected the intermalleolar axis. This was then prepared with the drill and keel punch. The femoral trial was placed. The trochlear cut was made. The 10 mm insert was placed. The patella was then prepared by resecting 10 mm off the undersurface. The peg guide was placed and peg holes were drilled. The trials were inserted. Full extension was easily obtained and 120 degrees of flexion with gravity was obtained. There was no anterior/posterior or medial/lateral laxity in flexion or extension. The patella tracked well. The trials were removed. The joint was irrigated with pulse lavage. Periarticular block was placed in the posterior capsule, medial and lateral retinaculum, extensor mechanism and subcutaneous tissues. The bone ends were irrigated and dried. The tibial baseplate was cemented into position. Excessive cement was removed. Superior surface was irrigated and dried and the polyethylene insert was placed. Distal femur was irrigated and dried and the femoral prosthesis was cemented into position. Excessive cement was removed. The undersurface of the patella was irrigated and dried. The patellar button was cemented into position. Excessive cement was removed. Once the cement had cured, the knee was taken through range of motion. Full extension was easily obtained and 120 degrees of flexion with gravity was easily obtained. There was no anterior/posterior or medial/lateral laxity in flexion or extension. The arthrotomy was closed with #2 Tevdek in smjhby-rx-jtxvd interrupted fashion. The wound was further irrigated using a total of 6 liters throughout the procedure. 0 Vicryl was used for deep subcutaneous layer, 2-0 Vicryl for the superficial subcutaneous layer, sondra used on the skin. A soft dressing was applied. The tourniquet was deflated and the patient was transferred to the recovery room awake and stable condition. Job ID: [id number] DocumentID: [id number] Dictated Date: 06/22/2022 11:05:06 Telephone Exchange Operator Date: 06/22/2022 18:10:00 Dictated By: MENDEZ NICHOLE MD
[2022-06-22] MEDS: AtorvaSTATin TABLET 10 MG TABLET PO SCH (20:15)
[2022-06-23 04:13] VITALS: BP 151/70
[2022-06-23] MEDS: NS IV 1000 ML 1,000 ML IV SCH ×2 (04:21→16:30)
[2022-06-23] MEDS: oxyCODONE/APAP 5/325MG (PERCOCET 5) TABLET PO PRN ×4 (04:21→20:03)
[2022-06-23 05:58] LABS: BASOPHILS % (AUTO) 0 % (0-10); EOSINOPHILS % (AUTO) 0 % (0-10); HEMATOCRIT 37 % (35-52); HEMOGLOBIN 11.9 g/dL (11.5-16.0); LYMPHOCYTES % (AUTO) 13 % (12-44); MEAN CORPUSCULAR HEMOGLOBIN 28 pg (25-34); MEAN CORPUSCULAR HGB CONC 33 g/dL (32-36); MEAN CORPUSCULAR VOLUME 85 fL (80-99); MEAN PLATELET VOLUME 10.4 fL (9.0-12.2); MONOCYTES # (AUTO) 0.7 10^3/uL (0.0-1.0); MONOCYTES % (AUTO) 10 % (0-12); NEUTROPHILS # (AUTO) 5.8 10^3/uL (1.8-7.8); NEUTROPHILS % (AUTO) 77 % (42-75); PLATELET COUNT 204 10^3/uL (130-400); WHITE BLOOD COUNT 7.5 10^3/uL (4.3-11.0)
[2022-06-23 06:08] LABS: ALBUMIN 3.6 GM/DL (3.2-4.5)
[2022-06-23 06:09] LABS: POTASSIUM 3.8 MMOL/L (3.6-5.0)
[2022-06-23 06:10] LABS: CALCIUM 8.6 MG/DL (8.5-10.1)
[2022-06-23 06:11] LABS: TOTAL PROTEIN 6.5 GM/DL (6.4-8.2)
[2022-06-23 06:13] LABS: BILIRUBIN,TOTAL 1.7 MG/DL (0.1-1.0)
[2022-06-23 06:15] LABS: CREATININE SERUM 0.59 MG/DL (0.60-1.30)
[2022-06-23 08:00] VITALS: BP 151/71
--- NOTE | 2022-06-23 08:03 | Progress Note ---
Standard Progress Note Progress Notes/Assess & Plan Date Seen by a Provider: Jun 23, 2022 Time Seen by a Provider: 07:54 Progress/Assessment & Plan post op check no complaints radiographs--HW well positioned without fracture LLE--intac DF and PF of toes and ankle intact sensation to light touch throughout 2 plus DP pulse with brisk cap refill s/p LTKA mobilize as able Final Diagnosis c/o pain Laboratory Tests Test 06/22/22 08:14 06/23/22 05:50 Range/Units Glucometer 128 H 70-110 MG/DL White Blood Count 7.5 4.3-11.0 10^3/uL Red Blood Count 4.28 3.80-5.11 10^6/uL Hemoglobin 11.9 11.5-16.0 g/dL Hematocrit 37 35-52 % Mean Corpuscular Volume 85 80-99 fL Mean Corpuscular Hemoglobin 28 25-34 pg Mean Corpuscular Hemoglobin Concent 33 32-36 g/dL Red Cell Distribution Width 14.1 10.0-14.5 % Platelet Count 204 130-400 10^3/uL Mean Platelet Volume 10.4 9.0-12.2 fL Immature Granulocyte % (Auto) 0 % Neutrophils (%) (Auto) 77 H 42-75 % Lymphocytes (%) (Auto) 13 12-44 % Monocytes (%) (Auto) 10 0-12 % Eosinophils (%) (Auto) 0 0-10 % Basophils (%) (Auto) 0 0-10 % Neutrophils # (Auto) 5.8 1.8-7.8 10^3/uL Lymphocytes # (Auto) 1.0 1.0-4.0 10^3/uL Monocytes # (Auto) 0.7 0.0-1.0 10^3/uL Eosinophils # (Auto) 0.0 0.0-0.3 10^3/uL Basophils # (Auto) 0.0 0.0-0.1 10^3/uL Immature Granulocyte # (Auto) 0.0 0.0-0.1 10^3/uL Sodium Level 135 135-145 MMOL/L Potassium Level 3.8 3.6-5.0 MMOL/L Chloride Level 101 98-107 MMOL/L Carbon Dioxide Level 26 21-32 MMOL/L Anion Gap 8 5-14 MMOL/L Blood Urea Nitrogen 6 L 7-18 MG/DL Creatinine 0.59 L 0.60-1.30 MG/DL Estimat Glomerular Filtration Rate 104 BUN/Creatinine Ratio 10 Glucose Level 145 H 70-105 MG/DL Calcium Level 8.6 8.5-10.1 MG/DL Corrected Calcium 8.9 8.5-10.1 MG/DL Total Bilirubin 1.7 H 0.1-1.0 MG/DL Aspartate Amino Transf (AST/SGOT) 806 H 5-34 U/L Alanine Aminotransferase (ALT/SGPT) 577 H 0-55 U/L Alkaline Phosphatase 341 H 40-136 U/L Total Protein 6.5 6.4-8.2 GM/DL Albumin 3.6 3.2-4.5 GM/DL Vital Signs Date Time Temp Pulse Resp B/P (MAP) Pulse Ox O2 Delivery O2 Flow Rate FiO2 06/23/22 04:13 36.4 98 18 151/70 (97) 94 Nasal Cannula 2.00 06/22/22 23:09 36.2 92 16 153/72 (99) 97 Nasal Cannula 2.00 06/22/22 20:20 Nasal Cannula 2.00 06/22/22 20:15 36.6 80 16 130/60 (83) 98 Nasal Cannula 2.00 06/22/22 16:35 35.9 71 16 117/60 (79) 96 Nasal Cannula 2.00 06/22/22 12:24 36.6 95 18 140/74 (96) 98 Nasal Cannula 2.00 06/22/22 12:05 Room Air 06/22/22 12:05 36.3 20 152/78 (102) 98 Nasal Cannula 2.00 06/22/22 12:00 20 152/78 (102) 98 Nasal Cannula 2.00 06/22/22 12:00 Room Air 06/22/22 11:50 20 149/75 (99) 100 Nasal Cannula 3.00 06/22/22 11:45 Room Air 06/22/22 11:40 20 149/75 (99) 97 OxyMask 2.00 06/22/22 11:30 OxyMask 2.00 06/22/22 11:30 20 142/83 (102) 98 OxyMask 2.00 06/22/22 11:20 20 136/82 (100) 100 OxyMask 3.00 06/22/22 11:15 OxyMask 6.00 06/22/22 11:10 20 143/74 (97) 100 OxyMask 4.00 06/22/22 11:00 OxyMask 6.00 06/22/22 11:00 20 132/85 (101) 100 OxyMask 6.00 06/22/22 10:58 OxyMask 6.00 06/22/22 10:58 36.3 20 132/72 (92) 100 OxyMask 6.00 I & O 06/23/22 07:00 Intake Total 1960 ml Output Total 1500 ml Balance 460 ml LLE--dressing intact no calf tenderness neg Shady's s/p LTKA PT/OT GERRI NAVARRETE MD Jun 23, 2022 08:03
--- NOTE | 2022-06-23 08:08 | Anesthesia-General Post-Op ---
General Patient Condition Mental Status/LOC: Same as Preop Cardiovascular: Satisfactory Nausea/Vomiting: Absent Respiratory: Satisfactory Pain: Controlled Complications: Absent Post Op Complications Complications None Follow Up Care/Instructions Patient Instructions None needed. Anesthesia/Patient Condition Patient Condition Patient is doing well, no complaints, stable vital signs, no apparent adverse anesthesia problems. No complications reported per nursing. KRISS HERNDON CRNA Jun 23, 2022 08:08
--- NOTE | 2022-06-23 08:08 | Anesthesia-Regional Post-Op ---
Regional Patient Condition Mental Status: Alert, Oriented x3 Circulation: Same as Pre-Op Headache: Absent Sensation: Full Recovery Motor Block: Absent Post Op Complications Complications None Follow Up Care/Instructions Patient Instructions None needed. Anesthesia/Patient Condition Patient is doing well, no complaints, stable vital signs, no apparent adverse anesthesia problems. No complications reported per nursing. KRISS HERNDON CRNA Jun 23, 2022 08:08
[2022-06-23] MEDS: ASPIRIN E.C. 81 MG (ECOTRIN) TAB PO SCH (08:20)
[2022-06-23] MEDS: ENOXAPARIN INJECTION 30 MG/0.3 ML SYR SC SCH ×2 (08:20→20:03)
[2022-06-23] MEDS: metFORMIN XR 500 MG (GLUCOPHAGE XR) TAB PO SCH ×2 (08:21→17:59)
[2022-06-23] MEDS: SENNA W/DOCUSATE (SENOKOT S) TABLET PO SCH ×2 (08:28→20:03)
--- NOTE | 2022-06-23 10:18 | Progress Note ---
"SERA BAPTISTE 06/23/22 1018: Subjective Date Seen by a Provider: Jun 23, 2022 Time Seen by a Provider: 08:30 Subjective/Events-last exam Patient was awake sitting in bed eating breakfast when seen this morning. Her daughter was with her who again translated for us. She reports fair appetite. She has not been up walking any since the procedure. She has fernandez catheter in place with clear yellow urine. Her labwork this morning revealed AST 806, ALT 577, and alk phos 341. She denies history of hepatitis and again reports only consuming alcohol once every 1-3 months. She is not aware of elevated liver enzymes in the past. She does not have her gallbladder. She reports tolerating food well without N/V and does not have any abd pain. She is having significant left knee pain for which she still has morphine WELDER REPAIR and PRN percocet as well. When rounding later in the am with Dr. Saunders, patient was found to have an oxygen saturation in the mid to upper 80's w/out supplemental oxygen. Her pain meds were adjusted and ABG ordered to assess for hypercapnia secondary to opiates and potential undiagnosed MICHAEL Review of Systems General: No Chills HEENT: No Head Aches, No Visual Changes Pulmonary: No Dyspnea, No Cough Cardiovascular: No: Chest Pain, Palpitations Gastrointestinal: No: Nausea, Vomiting, Abdominal Pain Genitourinary: No Dysuria, No Hematuria Musculoskeletal: leg pain (Significant left knee pain) Neurological: No: Weakness, Numbness Objective Exam Last Set of Vital Signs Vital Signs Date Time Temp Pulse Resp B/P (MAP) Pulse Ox O2 Delivery O2 Flow Rate FiO2 06/23/22 08:00 36.9 88 18 151/71 (97) 95 Room Air 06/23/22 04:13 2.00 Capillary Refill : Less Than 3 Seconds I&O Intake and Output 06/23/22 00:00 Intake Total 1660 ml Output Total 250 ml Balance 1410 ml Intake Oral 610 ml IV Total 1050 ml Output Urine Total 250 ml # Voids 2 Daily Weight Change No General: Alert, Oriented X3, No Acute Distress HEENT: Atraumatic, EOMI Neck: Supple, No JVD Lungs: Clear to Auscultation, Normal Air Movement Heart: Regular Rate, No Murmurs Abdomen: Normal Bowel Sounds, Soft, No Tenderness, No Hepatosplenomegaly Extremities: No Clubbing, No Cyanosis, No Edema, Normal Pulses, Other (PAtient continues to have bandage and cold compression on left knee.) Skin: No Rashes, No Breakdown Neuro: Normal Speech, Normal Tone, Sensation Intact Psych/Mental Status: Mental Status NL Results Lab Laboratory Tests 06/23/22 05:50: White Blood Count 7.5, Red Blood Count 4.28, Hemoglobin 11.9, Hematocrit 37, Mean Corpuscular Volume 85, Mean Corpuscular Hemoglobin 28, Mean Corpuscular Hemoglobin Concent 33, Red Cell Distribution Width 14.1, Platelet Count 204, Mean Platelet Volume 10.4, Immature Granulocyte % (Auto) 0, Neutrophils (%) (Auto) 77H, Lymphocytes (%) (Auto) 13, Monocytes (%) (Auto) 10, Eosinophils (%) (Auto) 0, Basophils (%) (Auto) 0, Neutrophils # (Auto) 5.8, Lymphocytes # (Auto) 1.0, Monocytes # (Auto) 0.7, Eosinophils # (Auto) 0.0, Basophils # (Auto) 0.0, Immature Granulocyte # (Auto) 0.0, Sodium Level 135, Potassium Level 3.8, Chloride Level 101, Carbon Dioxide Level 26, Anion Gap 8, Blood Urea Nitrogen 6L , Creatinine 0.59L, Estimat Glomerular Filtration Rate 104, BUN/Creatinine Ratio 10, Glucose Level 145H, Calcium Level 8.6, Corrected Calcium 8.9, Total Bilirubin 1.7H, Aspartate Amino Transf (AST/SGOT) 806H, Alanine Aminotransferase (ALT/SGPT) 577H, Alkaline Phosphatase 341H, Total Protein 6.5, Albumin 3.6 Assessment/Plan Assessment/Plan Assess & Plan/Chief Complaint Day 0 S/P left total knee arthroplasty -Per surg notes, patient tolerated procedure well without complications. Cefuroxime 750mg Q8 x2 bags ordered by surg and completed -Controlling pain with Morphine WELDER REPAIR in unison with Percocet at this time. Will back off on opiates given poor oxygen saturation on RA. Suspected MICHAEL with hypercapnia -ABG ordered this morning to assess for hypercapnia second to suspected MICHAEL and opiate use. Results 7.39 | 46 | 59 -pH normal, but mild hypercapnia. Will back off on pain medications as above and recommend following up with PCP upon discharge to assess need for sleep study. Transaminitis -AST 806, ALT 577, ald phos 341. Patient is asymptomatic at this time. Thought to be NAFLD. -Will monitor and trend labs and consider viral hepatitis panel and RUQ ultrasound if labs worsen. Non-insulin dependent Diabetes -Metformin 500mg PO BID with meals and consider Insulin sliding scale if necessary Hyperlipidemia -Atorvostatin 10mg PO HS DVT Proph: 30mg Q12 SC Diet: as tolerated CHARLINE SAUNDERS DO 06/24/22 0458: Supervisory-Addendum Brief Verification & Attestation Participated in pt care: history, MDM, physical Personally performed: exam, history, MDM, supervision of care Care discussed with: Medical Student Procedures: n/a Results interpretation: Verified all documentation Verification and Attestation of Medical Student E/M Service A medical student performed and documented this service in my presence. I reviewed and verified all information documented by the medical student and made modifications to such information, when appropriate. I personally performed the physical exam and medical decision making. Charline Saunders Jun 24, 2022,04:58 SERA BAPTISTE Jun 23, 2022 10:18 CHARLINE SAUNDERS DO Jun 24, 2022 04:58"
--- NOTE | 2022-06-23 10:51 | Physical Therapy Daily Note ---
PT Daily Note-Current Subjective Patient agrees to PT. Daughter present to translate. Pain Section J - Health Conditions 1. Rarely or not at all 2. Occasionally 3. Frequently 4. Almost constantly 8. Unable to answer Pain Effect on Sleep: 3 Pain Interference with Therapy: 3 Pain Interference w/Day-to-Day: 3 Mental Status Patient Orientation: Normal For Age Attachments: Polar Pack, IV Transfers SCALE: Activities may be completed with or without assistive devices. 8-Dfwgjthuym-uzekhwy completes the activity by him/herself with no assistance from a helper. 5-Set-up or Clean-up Assistance-helper sets up or cleans up; patient completes activity. [place] assists only prior to or following the activity. 4-Supervision or Touching Assistance-helper provides verbal cues and/or touching/steadying and/or contact guard assistance as patient completes activity. Assistance may be provided throughout the activity or intermittently. 3-Partial/Moderate Assistance-helper does LESS THAN HALF the effort. [place] lifts, holds or supports trunk or limbs, but provides less than half the effort. 2-Substantial/Maximal Assistance-helper does MORE THAN HALF the effort. [place] lifts or holds trunk or limbs and provides more than half the effort. 6-Vwecloadj-zpcybx does ALL the effort. Patient does none of the effort to co mplete the activity. Or, the assistance of 2 or more helpers is required for the patient to complete the activity. If activity was not attempted, code reason: 7-Patient Refused. 9-Not Applicable-not attempted and the patient did not perform the activity before the current illness, exacerbation or injury. 10-Not Attempted due to Environmental Limitations-(lack of equipment, weather restraints, etc.). 88-Not Attempted due to Medical Conditions or Safety Concerns. Lying to Sitting/Side of Bed(Q: 4 Sit to Stand (QC): 4 Chair/Nga-ym-Ybhfl Xfer(QC): 4 Toilet Transfer (QC): 4 Weight Bearing Right Lower Extremity: Right Full Weight Bearing Left Lower Extremity: Left Weight Bearing/Tolerated Gait Training Distance: 150' Walk 10 feet (QC): 4 Walk 50 ft with 2 Turns(QC): 4 Walk 150 ft (QC): 4 Gait Assistive Device: FWW slow, antalgic gait sequence Exercises Supine Ex: Ankle pumps, Quad Set, Heel Slides, Straight leg raise Supine Reps: 15 (AAROM left LE with HS and SLR) Seated Therapy Exercises: Long arc quads Seated Reps: 15 Assessment Patient does appear to self limit with left knee flexion due to pain. Pain medication has been issued prior. PT to increase activity as tolerated by patient. PT Water Softener Service Supervisor Goals Assisted Goals PT Water Softener Service Supervisor Goals Time Frame: Jul 16, 2022 Roll Left & Right (QC): 6 Sit to Lying (QC): 6 Lying-Sitting on Side/Bed(QC): 6 Sit to Stand (QC): 6 Chair/Qeh-bw-Yzoio Xfer(QC): 6 Toilet Transfer (QC): 6 Does the Patient Walk: Yes Walk 10 feet (QC): 4 Walk 50ft with 2 Turns (QC): 4 Walk 150 ft (QC): 4 1 Step (curb) (QC): 3 4 Steps (QC): 3 12 Steps (QC): 3 PT Plan Treatment/Plan Treatment Plan: Continue Plan of Care Treatment Plan: Bed Mobility, Education, Functional Activity Ovi, Functional Strength, Group Therapy, Gait, Safety, Therapeutic Exercise, Transfers Treatment Duration: Jul 16, 2022 Frequency: 11 times per week Estimated Hrs Per Day: .25 hour per day Patient and/or Family Agrees t: Yes Time Time In: 855 Time Out: 919 DATE: Jun 23, 2022 Total Billed Treatment Time: 24 Total Billed Treatment 1 visit EX 13 min GT 11 min CHRISTOS BUSTILLOS PT Jun 23, 2022 10:51
[2022-06-23 11:20] LABS: ALBUMIN 3.6 GM/DL (3.2-4.5)
[2022-06-23 11:22] LABS: TOTAL PROTEIN 6.4 GM/DL (6.4-8.2)
[2022-06-23 11:24] LABS: BILIRUBIN,TOTAL 1.6 MG/DL (0.1-1.0)
[2022-06-23 11:28] LABS: BILIRUBIN,DIRECT 1.1 MG/DL (0.0-0.3); BILIRUBIN,INDIRECT 0.5 MG/DL
[2022-06-23 11:41] VITALS: BP 144/84
[2022-06-23 12:33] LABS: ABG BASE EXCESS 2.8 MMOL/L (-2.5-2.5); ABG OXYGEN SATURATION 91 % (94-100); ABG PCO2 46 MMHG (35-45); ABG PH 7.39 (7.37-7.43); ABG PO2 59 MMHG (79-93); ABG TCO2 28.6 MMOL/L (21.0-31.0)
[2022-06-23 12:34] LABS: ALLENS TEST YES-POS; INSPIRED O2 ROOM AIR; PATIENT TEMP 37.2; VENTILATOR NO
--- NOTE | 2022-06-23 14:46 | Physical Therapy Daily Note ---
PT Daily Note-Current Subjective Patient reluctantly agrees to PT. Pain Section J - Health Conditions 1. Rarely or not at all 2. Occasionally 3. Frequently 4. Almost constantly 8. Unable to answer Pain Effect on Sleep: 3 Pain Interference with Therapy: 3 Pain Interference w/Day-to-Day: 3 Mental Status Patient Orientation: Normal For Age Attachments: Polar Pack, IV Transfers SCALE: Activities may be completed with or without assistive devices. 8-Krplrxpydd-xoouhqh completes the activity by him/herself with no assistance from a helper. 5-Set-up or Clean-up Assistance-helper sets up or cleans up; patient completes activity. [place] assists only prior to or following the activity. 4-Supervision or Touching Assistance-helper provides verbal cues and/or touching/steadying and/or contact guard assistance as patient completes activity. Assistance may be provided throughout the activity or intermittently. 3-Partial/Moderate Assistance-helper does LESS THAN HALF the effort. [place] lifts, holds or supports trunk or limbs, but provides less than half the effort. 2-Substantial/Maximal Assistance-helper does MORE THAN HALF the effort. [place] lifts or holds trunk or limbs and provides more than half the effort. 3-Vxwuhbzvv-agffvg does ALL the effort. Patient does none of the effort to complete the activity. Or, the assistance of 2 or more helpers is required for the patient to complete the activity. If activity was not attempted, code reason: 7-Patient Refused. 9-Not Applicable-not attempted and the patient did not perform the activity before the current illness, exacerbation or injury. 10-Not Attempted due to Environmental Limitations-(lack of equipment, weather restraints, etc.). 88-Not Attempted due to Medical Conditions or Safety Concerns. Sit to Lying (QC): 3 Sit to Stand (QC): 4 Chair/Jfi-ue-Pyjra Xfer(QC): 4 Weight Bearing Right Lower Extremity: Right Full Weight Bearing Left Lower Extremity: Left Weight Bearing/Tolerated Gait Training Distance: 180' Walk 10 feet (QC): 4 Walk 50 ft with 2 Turns(QC): 4 Walk 150 ft (QC): 4 Gait Assistive Device: FWW slow antalgic gait sequence Exercises Supine Ex: Ankle pumps, Quad Set, Heel Slides, Straight leg raise Supine Reps: 15 Seated Therapy Exercises: Long arc quads Seated Reps: 15 Assessment Patient tolerated treatment and continues to resist left knee flexion. Education with patient on importance of actively flexing left knee an increasing activity to improve functional mobility. Family present to translate. PT Jail Goals Home Improvement Installer Goals PT Jail Goals Time Frame: Jul 16, 2022 Roll Left & Right (QC): 6 Sit to Lying (QC): 6 Lying-Sitting on Side/Bed(QC): 6 Sit to Stand (QC): 6 Chair/Aeo-nj-Wwyki Xfer(QC): 6 Toilet Transfer (QC): 6 Does the Patient Walk: Yes Walk 10 feet (QC): 4 Walk 50ft with 2 Turns (QC): 4 Walk 150 ft (QC): 4 1 Step (curb) (QC): 3 4 Steps (QC): 3 12 Steps (QC): 3 PT Plan Treatment/Plan Treatment Plan: Continue Plan of Care Treatment Plan: Bed Mobility, Education, Functional Activity Ovi, Functional Strength, Group Therapy, Gait, Safety, Therapeutic Exercise, Transfers Treatment Duration: Jul 16, 2022 Frequency: 11 times per week Estimated Hrs Per Day: .25 hour per day Patient and/or Family Agrees t: Yes Time Time In: 1316 Time Out: 1345 DATE: Jun 23, 2022 Total Billed Treatment Time: 29 Total Billed Treatment 1 visit EX 15 min GT 14 min CHRISTOS BUSTILLOS PT Jun 23, 2022 14:46
[2022-06-23 15:34] VITALS: BP 143/80
[2022-06-23 19:34] VITALS: BP 170/88
[2022-06-23] MEDS: AtorvaSTATin TABLET 10 MG TABLET PO SCH (20:03)
--- NOTE | 2022-06-23 23:05 | DISCHARGE SUMMARY ---
DIAGNOSES: 1. Left knee primary osteoarthritis. 2. Diabetes mellitus. HOSPITAL COURSE: The patient is a 57-year-old female who underwent a left total knee arthroplasty on day of admission. Postoperatively, she did well. At time of discharge, her wound was clean and dry. She had no calf tenderness. Negative Homans sign. She had retained independent status. She was tolerating diet well and tolerating pain with oral pain medication. CONDITION AT DISCHARGE: Good. DISCHARGE DIET: Regular. Followup is in 3 weeks. ACTIVITIES: Weightbearing as tolerated with walker. DISCHARGE MEDICATIONS: Home medications, Percocet as needed for pain and one aspirin per day for 4 weeks. Job ID: [id number] DocumentID: [id number] Dictated Date: 06/23/2022 08:05:02 Naturopathic Doctor Date: 06/23/2022 23:03:00 Dictated By: GERRI NAVARRETE MD
[2022-06-24] VITALS: BP 154/75
[2022-06-24] MEDS: oxyCODONE/APAP 5/325MG (PERCOCET 5) TABLET PO PRN ×3 (02:20→14:10)
[2022-06-24 04:00] VITALS: BP 146/72
[2022-06-24] MEDS: NS IV 1000 ML 1,000 ML IV SCH (06:36)
--- NOTE | 2022-06-24 07:10 | Progress Note ---
Standard Progress Note Progress Notes/Assess & Plan Date Seen by a Provider: Jun 24, 2022 Time Seen by a Provider: 07:01 Progress/Assessment & Plan post op check no complaints radiographs--HW well positioned without fracture LLE--intac DF and PF of toes and ankle intact sensation to light touch throughout 2 plus DP pulse with brisk cap refill s/p LTKA mobilize as able Final Diagnosis no complaints Laboratory Tests Test 06/23/22 12:20 06/24/22 05:23 Range/Units Blood Gas Puncture Site RIGHT RADIAL Blood Gas Patient Temperature 37.2 Arterial Blood pH 7.39 7.37-7.43 Arterial Blood Partial Pressure CO2 46 H 35-45 MMHG Arterial Blood Partial Pressure O2 59 L 79-93 MMHG Arterial Blood HCO3 27 23-27 MMOL/L Arterial Blood Total CO2 28.6 21.0-31.0 MMOL/L Arterial Blood Oxygen Saturation 91 L 94-100 % Arterial Blood Base Excess 2.8 H -2.5-2.5 MMOL/L Emile Test YES-POS Blood Gas Ventilator Setting NO Blood Gas Inspired Oxygen ROOM AIR Hemoglobin 11.0 L 11.5-16.0 g/dL Hematocrit 34 L 35-52 % Vital Signs Date Time Temp Pulse Resp B/P (MAP) Pulse Ox O2 Delivery O2 Flow Rate FiO2 06/24/22 04:00 36.5 96 18 146/72 (96) 95 Nasal Cannula 3.00 06/24/22 00:00 36.9 84 18 154/75 (101) 97 Nasal Cannula 3.00 06/23/22 21:00 Room Air 06/23/22 19:34 37.1 99 18 170/88 (115) 96 Nasal Cannula 3.00 06/23/22 16:36 Room Air 06/23/22 15:34 37.1 98 18 143/80 (101) 98 Nasal Cannula 2.00 06/23/22 11:41 37.1 90 16 144/84 (104) 93 Room Air 06/23/22 09:00 93 Room Air 06/23/22 08:00 36.9 88 18 151/71 (97) 95 Room Air I & O 06/24/22 07:00 Intake Total 2640 ml Output Total 1750 ml Balance 890 ml LLE--incision clena and dry no calf tenderness neg Gt's s/p LTKA doing well Dc home after PT today GERRI NAVARRETE MD Jun 24, 2022 07:10
[2022-06-24 07:12] LABS: BASOPHILS % (AUTO) 0 % (0-10); EOSINOPHILS % (AUTO) 0 % (0-10); HEMATOCRIT 34 % (35-52); HEMOGLOBIN 11.1 g/dL (11.5-16.0); LYMPHOCYTES # (AUTO) 1.1 10^3/uL (1.0-4.0); LYMPHOCYTES % (AUTO) 16 % (12-44); MEAN CORPUSCULAR HEMOGLOBIN 28 pg (25-34); MEAN CORPUSCULAR HGB CONC 33 g/dL (32-36); MEAN CORPUSCULAR VOLUME 85 fL (80-99); MEAN PLATELET VOLUME 10.8 fL (9.0-12.2); MONOCYTES # (AUTO) 0.5 10^3/uL (0.0-1.0); MONOCYTES % (AUTO) 8 % (0-12); NEUTROPHILS # (AUTO) 5.1 10^3/uL (1.8-7.8); NEUTROPHILS % (AUTO) 75 % (42-75); PLATELET COUNT 180 10^3/uL (130-400); WHITE BLOOD COUNT 6.7 10^3/uL (4.3-11.0)
[2022-06-24 07:15] LABS: ALBUMIN 3.3 GM/DL (3.2-4.5); POTASSIUM 3.1 MMOL/L (3.6-5.0)
[2022-06-24] MEDS ORDERED: morphine INJ 4 MG/ML 1 ML (VIAL/SYRINGE) IVP PRN (07:15)
[2022-06-24 07:16] LABS: CALCIUM 8.7 MG/DL (8.5-10.1)
[2022-06-24 07:18] LABS: TOTAL PROTEIN 6.3 GM/DL (6.4-8.2)
[2022-06-24 07:19] LABS: BILIRUBIN,TOTAL 0.9 MG/DL (0.1-1.0)
[2022-06-24 07:21] LABS: CREATININE SERUM 0.54 MG/DL (0.60-1.30)
[2022-06-24 08:02] VITALS: BP 145/83
[2022-06-24] MEDS: ASPIRIN E.C. 81 MG (ECOTRIN) TAB PO SCH (08:44)
[2022-06-24] MEDS: metFORMIN XR 500 MG (GLUCOPHAGE XR) TAB PO SCH (08:44)
[2022-06-24] MEDS: ENOXAPARIN INJECTION 30 MG/0.3 ML SYR SC SCH (08:44)
[2022-06-24] MEDS: SENNA W/DOCUSATE (SENOKOT S) TABLET PO SCH (08:44)
--- NOTE | 2022-06-24 10:13 | Physical Therapy Daily Note ---
PT Daily Note-Current Subjective Patient agrees to PT. Pain Numeric Pain Scale: 10-Worst Possible Pain Location: Left Location Body Site: Knee Pain Description: Acute Section J - Health Conditions 1. Rarely or not at all 2. Occasionally 3. Frequently 4. Almost constantly 8. Unable to answer Pain Effect on Sleep: 3 Pain Interference with Therapy: 3 Pain Interference w/Day-to-Day: 3 Transfers SCALE: Activities may be completed with or without assistive devices. 7-Yvwnpshayd-leobeos completes the activity by him/herself with no assistance from a helper. 5-Set-up or Clean-up Assistance-helper sets up or cleans up; patient completes activity. Viola assists only prior to or following the activity. 4-Supervision or Touching Assistance-helper provides verbal cues and/or touching/steadying and/or contact guard assistance as patient completes activity. Assistance may be provided throughout the activity or intermittently. 3-Partial/Moderate Assistance-helper does LESS THAN HALF the effort. Viola lifts, holds or supports trunk or limbs, but provides less than half the effort. 2-Substantial/Maximal Assistance-helper does MORE THAN HALF the effort. Viola lifts or holds trunk or limbs and provides more than half the effort. 2-Fluvukrta-hhaerw does ALL the effort. Patient does none of the effort to complete the activity. Or, the assistance of 2 or more helpers is required for the patient to complete the activity. If activity was not attempted, code reason: 7-Patient Refused. 9-Not Applicable-not attempted and the patient did not perform the activity before the current illness, exacerbation or injury. 10-Not Attempted due to Environmental Limitations-(lack of equipment, weather restraints, etc.). 88-Not Attempted due to Medical Conditions or Safety Concerns. Lying to Sitting/Side of Bed(Q: 4 Sit to Stand (QC): 4 Chair/Zma-jy-Lqgnd Xfer(QC): 4 Weight Bearing Right Lower Extremity: Right Full Weight Bearing Left Lower Extremity: Left Weight Bearing/Tolerated Gait Training Distance: 150' Walk 10 feet (QC): 4 Walk 50 ft with 2 Turns(QC): 4 Walk 150 ft (QC): 4 Gait Assistive Device: FWW very slow, antalgic Exercises Supine Ex: Ankle pumps, Heel Slides, Straight leg raise Supine Reps: 15 (resists left knee flexion and requires assistance to perform all exercises.) Seated Therapy Exercises: Long arc quads Seated Reps: 15 Assessment AROM left knee 10-20 degrees with patient resisting all ROM. Family observed assisting patient with all mobility (bed mobility and donnig socks) PT attempted to educate patient on importance of increasing left knee flexion and to utilize all musculature. Patient, currently , unable to comply. PT Floor Worker Well Service Goals Prison Goals PT Floor Worker Well Service Goals Time Frame: Jul 16, 2022 Roll Left & Right (QC): 6 Sit to Lying (QC): 6 Lying-Sitting on Side/Bed(QC): 6 Sit to Stand (QC): 6 Chair/Nts-sq-Hadtc Xfer(QC): 6 Toilet Transfer (QC): 6 Does the Patient Walk: Yes Walk 10 feet (QC): 4 Walk 50ft with 2 Turns (QC): 4 Walk 150 ft (QC): 4 1 Step (curb) (QC): 3 4 Steps (QC): 3 12 Steps (QC): 3 PT Plan Treatment/Plan Treatment Plan: Discontinue PT Treatment Plan: Bed Mobility, Education, Functional Activity Ovi, Functional Strength, Group Therapy, Gait, Safety, Therapeutic Exercise, Transfers Treatment Duration: Jul 16, 2022 Frequency: 11 times per week Estimated Hrs Per Day: .25 hour per day Patient and/or Family Agrees t: Yes Time Time In: 755 Time Out: 820 DATE: Jun 24, 2022 Total Billed Treatment Time: 25 Total Billed Treatment 1 visit EX 15 min GT 10 min CHRISTOS BUSTILLOS PT Jun 24, 2022 10:13
--- NOTE | 2022-06-24 10:53 | Progress Note ---
Subjective Date Seen by a Provider: Jun 24, 2022 Time Seen by a Provider: 11:00 Subjective/Events-last exam Doing well Pain controlled DC today Labs reviewed Review of Systems General: Fatigue, Malaise Objective Exam Last Set of Vital Signs Vital Signs Date Time Temp Pulse Resp B/P (MAP) Pulse Ox O2 Delivery O2 Flow Rate FiO2 06/24/22 09:00 Room Air 06/24/22 08:02 37.4 90 19 145/83 (103) 97 3.00 Capillary Refill : Less Than 3 Seconds I&O Intake and Output 06/24/22 00:00 Intake Total 2540 ml Output Total 2200 ml Balance 340 ml Intake Oral 1490 ml IV Total 1050 ml Output Urine Total 2200 ml # Voids 5 # Bowel Movements 1 General: Alert, Oriented X3, Cooperative, No Acute Distress Lungs: Clear to Auscultation, Normal Air Movement Heart: Regular Rate, Normal S1, Normal S2, No Murmurs Psych/Mental Status: Mental Status NL, Mood NL Results Lab Laboratory Tests 06/23/22 12:20: Blood Gas Puncture Site RIGHT RADIAL, Blood Gas Patient Temperature 37.2, Arterial Blood pH 7.39, Arterial Blood Partial Pressure CO2 46H, Arterial Blood Partial Pressure O2 59L, Arterial Blood HCO3 27, Arterial Blood Total CO2 28.6, Arterial Blood Oxygen Saturation 91L, Arterial Blood Base Excess 2.8H, Emile Test YES-POS, Blood Gas Ventilator Setting NO, Blood Gas Inspired Oxygen ROOM AIR 06/24/22 05:23: White Blood Count 6.7, Red Blood Count 3.95, Hemoglobin 11.1L, Hematocrit 34L, Mean Corpuscular Volume 85, Mean Corpuscular Hemoglobin 28, Mean Corpuscular Hemoglobin Concent 33, Red Cell Distribution Width 14.0, Platelet Count 180, M anish Platelet Volume 10.8, Immature Granulocyte % (Auto) 0, Neutrophils (%) (Auto) 75, Lymphocytes (%) (Auto) 16, Monocytes (%) (Auto) 8, Eosinophils (%) (Auto) 0, Basophils (%) (Auto) 0, Neutrophils # (Auto) 5.1, Lymphocytes # (Auto) 1.1, Monocytes # (Auto) 0.5, Eosinophils # (Auto) 0.0, Basophils # (Auto) 0.0, Immature Granulocyte # (Auto) 0.0, Sodium Level 138, Potassium Level 3.1L, Chloride Level 105, Carbon Dioxide Level 24, Anion Gap 9, Blood Urea Nitrogen 4L , Creatinine 0.54L, Estimat Glomerular Filtration Rate 107, BUN/Creatinine Ratio 7, Glucose Level 130H, Calcium Level 8.7, Corrected Calcium 9.3, Total Bilirubin 0.9, Aspartate Amino Transf (AST/SGOT) 174H, Alanine Aminotransferase (ALT/SGPT) 318H, Alkaline Phosphatase 267H, Total Protein 6.3L, Albumin 3.3 Assessment/Plan Assessment/Plan Assess & Plan/Chief Complaint [facility] IKE ORTIZ DO Jun 24, 2022 10:53
[2022-06-24 12:14] VITALS: BP 128/86
[2022-06-24 14:00] VITALS: BP 128/86
== END 2022-06-24 14:00 | disposition home health service (06) | DRG 470 ==
LOC: 4TH 07:53 → SURG 07:55 → 4TH 12:05
PROVIDERS: ADMIT Orthopaedic Surgery; ATTEND Orthopaedic Surgery
PROC: 0SRD0J9 Replacement of Left Knee Joint with Synthetic Substitute, Cemented, Open Approach (ICD-10-PCS; principal; 2022-06-22 09:27)
DX: M17.12 Unilateral primary osteoarthritis, left knee (principal); E11.9 Type 2 diabetes mellitus without complications; E78.00 Pure hypercholesterolemia, unspecified; R06.89 Other abnormalities of breathing; G47.33 Obstructive sleep apnea (adult) (pediatric); R74.01 Elevation of levels of liver transaminase levels
CPT/HCPCS: 36415; 73560; 80053; 80076; 82805; 82947; 82977; 85014; 85018; 85025; 86850; 86900; 86901